=== PATIENT | female | born 1945 | race Caucasian/White ===

== ENCOUNTER → 2016-08-26 | Outpatient (CLI) | payer OTHER | LOC: MMPC 09:00 | PROVIDERS: ATTEND Family Medicine | DX: Z79.01 Long term (current) use of anticoagulants (principal); Z51.81 Encounter for therapeutic drug level monitoring; Z86.718 Personal history of other venous thrombosis and embolism | CPT/HCPCS: 85610 ==

== ENCOUNTER → 2016-10-07 | Outpatient (CLI) | payer OTHER | LOC: MMPC 09:00 | PROVIDERS: ATTEND Family Medicine | DX: Z79.01 Long term (current) use of anticoagulants (principal); Z51.81 Encounter for therapeutic drug level monitoring; Z86.718 Personal history of other venous thrombosis and embolism | CPT/HCPCS: 85610 ==

== ENCOUNTER → 2016-11-18 | Outpatient (CLI) | payer OTHER | LOC: MMPC 09:00 | PROVIDERS: ATTEND Family Medicine | DX: Z79.01 Long term (current) use of anticoagulants (principal); Z51.81 Encounter for therapeutic drug level monitoring; Z86.718 Personal history of other venous thrombosis and embolism | CPT/HCPCS: 85610 ==

== ENCOUNTER 2016-12-19 09:30 | Inpatient (IN) | payer OTHER ==
[2016-12-19] MEDS ORDERED: NORMAL SALINE 10 ML SYRINGE FLUSH IVP PRN ×2 (09:41→12:22)
[2016-12-19] MEDS ORDERED: KETOROLAC 15 MG/1 ML VIAL IVP ONE (09:41)
[2016-12-19] MEDS ORDERED: Sodium Chloride 0.9% 1,000 ML PRIMARY IV ONE ×2 (09:41→12:22)
[2016-12-19] MEDS ORDERED: ONDANSETRON 4 MG/2 ML VIAL IVP ONE (09:41)
--- NOTE | 2016-12-19 09:51 | PDOC ---
General Adult HPI - General Chief Complaint: General Medical Stated Complaint: flu symptoms, possible cellulitis Date Seen by Provider: 12/19/16 Time Seen by Provider: 09:35 Source: POSITIVE: Patient, EMS Exam Limitations: POSITIVE: No limitations Nurse's Notes Reviewed & Considered: Yes EMS Report Reviewed & Considered: Verbal - History of Present Illness Initial Comment: The patient is a 71-year-old female who presents to the emergency department by ambulance with flulike symptoms. She states that she has not felt well for the past 2 days. Her son was seen at the walk-in clinic last week and diagnosed with influenza B. The patient states that she has had onset of nausea and vomiting and is really been unable to keep anything down the last day or 2. She has some intermittent abdominal pain and currently has some pain in the epigastric region. She has had loose stools. She denies any blood in her stool or emesis. She states that she has been unable to take her medications for the last day or 2. She does have a history of diabetes as well as history of recurrent DVTs. She has some open wounds on her leg and thinks she is getting an infection on her left lower leg and the calf region. She reports subjective fevers and chills at home. She describes generalized muscle aches as well. She denies any chest pain or increased shortness of breath. She does have mild sore throat and cough as well. 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 She reports increased generalized weakness as well as some dizziness and lightheadedness at home. Have you received a tetanus shot in the past 10 years?: Yes - Patient Home Medications Home Medications: Home Medications Potassium Chloride [Klor-Con] 20 meq PO DAILY #30 tab 12/09/14 Pantoprazole Sodium 1 tab PO QD #30 tab 12/29/15 Tramadol HCl 1 tab PO TID PRN #90 tab 02/12/16 Furosemide 20 mg PO Q48H #30 tablet 03/30/16 Clindamycin HCl 1 cap PO TID #30 cap 04/02/16 Lisinopril 1 tab PO DAILY #30 tab 05/19/16 Metformin HCl 1,000 mg PO C BK DIN #180 tablet 05/26/16 Ascorbic Acid [Vitamin C] 1 tab PO QD #30 tab 10/07/16 Neomyc/Bacit/Polymy Oint [Neosporin Oint] 1 applic TOPICAL BID #1 tube 10/07/16 Zinc 1 tab PO QD #30 tab 10/07/16 Atenolol 25 mg PO BEDTIME #30 tablet 10/12/16 Bupropion HCl [Bupropion Hcl Sr] 150 mg PO BID #60 tablet.sa 10/12/16 Canagliflozin [Invokana] 1 tab PO QD #30 tab 10/12/16 Nitroglycerin [Nitroglycerin Patch] 0.2 patch TRANSDERM Q24H #30 patch.td24 Simvastatin 20 mg PO DAILY #30 tablet 10/12/16 Warfarin Sodium 4 tab PO DAILY #120 tab 10/14/16 - Patient Allergies Allergies/Adverse Reactions: Allergies Allergy/AdvReac Type Severity Reaction Status Date / Time morphine Allergy DYSPHORIA Verified 12/19/16 11:21 Past Medical History - heen HEENT History: Chipped or Loose Teeth 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 CHIPPED/BROKEN TEETH. STATES NOTHING CURRENTLY LOOSE Cardiovascular History: Hypertension, Angina, DVTs, Hyperlipidemia Respiratory History: Snoring Gastrointestinal History: Gallbladder Disease Additional Gastrointestinal History: LAP GALILEO Genitourinary History: Denies History Endocrine History: Type 2 Diabetes (oral) Additional Endocrine History: PLUS INVOKANA FRO DM Musculoskeletal History: Arthritis, Back Pain, Limited ROM, Joint Pain Prosthesis or Implant: No Additional Musculoskeletal History: PATIENT STATES SHE HAS ARTHRITIS HOWEVER NO PRIOR ACTUAL DIAGNOSIS Neurological History: TIA Additional Neurological History: POSSIBLE TIA IN 2013 Blood Disorders: Anemia, Clotting Disorders Additional Blood Disorders History: MULTIPLE PREVIOUS BLOOD CLOTS. Psychiatric History: Depression History of Sexually Transmitted Diseases: No Cancer History: Denies History History of MDRO: No History of Other Communicable Diseases: No Alcohol Use: None Substance Use Type: None Previous Surgical History: Yes Type / Date of Surgery: D&C, CHOLECYSTECTOMY Anesthesia Reactions: No Malignant Hyperthermia: No Significant Family History: Heart disease, COPD Additional Family History: Mother has heart disease and COPD Past Medical History Reviewed: Reviewed - No Changes ROS - Limitations ROS Limitations: No Limitations Constitution: REPORTS: Chills, Fever, Weakness (Generalized weakness, difficult for her to even get out of bed) Cardiovascular: REPORTS: Edema (Chronic edema in her legs). DENIES: Chest Pain , Heart Racing, Heart Palpitations Respiratory: REPORTS: Cough Non Productive (Mild). DENIES: Cough Productive, Hurts To Breathe, Shortness Of Breath Neurological: REPORTS: Dizziness. DENIES: Headache, Numbness, Weakness Gastrointestinal: REPORTS: Abdominal Pain (Some intermittent abdominal pain and cramping the last few days, some vague discomfort in the epigastric region currently), Nausea, Vomitting, Diarrhea (Primarily loose stools). DENIES: Black Stools, Bloody Stools, Constipation Endocrine: REPORTS: Fatigue Musculoskeletal: REPORTS: Muscle Aches (Generalized muscle aches) Genitourinary: DENIES: Dysuria, Hematuria, Difficulty Urinating Eyes: REPORTS: Denies Symptoms ENT: REPORTS: Congestion, Sore Throat Skin: DENIES: Rash General Adult Exam - General Appearance General Appearance: POSITIVE: Alert, Cooperative, No Acute Distress - HEENT HEENT: POSITIVE: Head Inspection Nml, Eyes Inspection Nml, Ears Inspection Nml, Dry Mucous Membranes - Neck Neck: POSITIVE: Normal Inspection. NEGATIVE: Lymphadenopathy - Respiratory Respiratory: POSITIVE: No Respiratory Distress, Breath Sounds Normal - Cardiovascular Cardiovascular: POSITIVE: Regular Rate & Rhythm, No Murmur, No Gallop Peripheral Pulses: Dorsalis-pedis (R): 2+, Dorsalis-pedis (L): 2+ - Abdomen Abdomen: Soft: (All Quadrants), Denies Tenderness: (All Quadrants), No Distention: (All Quadrants) - Skin Skin: POSITIVE: Normal Color - Extremities Additional Extremities Details: She does have edema in her legs bilaterally, she does have venous stasis changes noted bilaterally in her lower legs, she does have several open wounds to her shins, she also has an open wound to the left calf with some associated induration, warmth and swelling. 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 As Tested, Motor Normal, Sensation Normal, Other (No focal neurologic deficits) General Adult Progress - Results Reviewed by me Lab Results Reviewed: Yes Lab Results:: Laboratory Results 12/19/16 Range/Units 09:21 WBC 3.86 L (4.8-10.8) 10^3/uL RBC 5.43 H (4.20-5.40) 10^6/uL Hgb 14.7 (12.0-16.0) g/dL Hct 43.6 (37.0-47.0) % MCV 80.3 L (81-99) FL MCH 27.1 (27-31) PG MCHC 33.7 (33-37) g/dL RDW Std Deviation 44.1 (39-50) fL RDW Coeff of Patricia 15.3 H (11.5-14.5) % Plt Count 201 (140-350) 10*3/uL MPV 9.7 (7.4-12.2) FL Immature Gran % (Auto) 0.3 (0-5) % Neut % (Auto) 84.1 H (50-80) % Lymph % (Auto) 8.8 L (10-50) % [place] % (Auto) 5.2 (5-15) % Eos % (Auto) 1.3 (0-8) % Baso % (Auto) 0.3 (0-1) % Immature Gran # (Auto) 0.01 10*3/UL Neut # (Auto) 3.25 10*3/UL Lymph # (Auto) 0.34 10*3/uL [place] # (Auto) 0.20 L (0.3-0.8) 10*3/UL Eos # (Auto) 0.05 10*3/UL Baso # (Auto) 0.01 10*3/UL WBC Morphology Comment Normal morphology (NORM) Plt Morphology Comment Normal morphology (NORM) RBC Morph Comment Normal morphology (NORM) PT 11.4 (9.7-11.4) secs INR 1.10 (0.00-5.90) N/A Sodium 138 (135-145) meq/L Potassium 4.1 (3.8-5.2) meq/L Chloride 103 (98-112) meq/L Carbon Dioxide 25 (23-33) meq/L Anion Gap 10 (5-20) BUN 17 (7-22) mg/dL Creatinine 0.8 (0.50-1.20) mg/dL Estimated GFR > 60 (>60 ml/min/1.73m(2)) BUN/Creatinine Ratio 21.25 H (6-20) Glucose 216 H (78-110) mg/dL Calculated Osmolality 294.0 H (267-292) mOsm/kg Lactic Acid 1.1 (0.70-2.10) MMOL/L Calcium 9.9 (8.7-10.7) mg/dL Magnesium 1.6 (1.6-2.4) mg/dL Total Bilirubin 0.9 (0.3-1.2) mg/dL AST 21 (8-39) IU/L ALT 27 (9-52) IU/L Alkaline Phosphatase 81 (38-126) IU/L Total Creatine Kinase 54 (30-136) IU/L Troponin I < 0.012 (< 0.040) ng/mL C-Reactive Protein 1.0 H (0.0-0.9) mg/dL Total Protein 7.3 (6.1-8.0) g/dL Albumin 3.9 (3.5-4.8) g/dL Globulin 3.3 (2.50-4.10) g/dL Albumin/Globulin Ratio 1.10 L (1.3-2.0) mg/g EKG Interpreted/Reviewed By Me:: Yes EKG Interpretation:: POSITIVE: Normal Sinus Rhythm, Normal Rate, Normal Intervals, Normal QRS, Normal ST/T - Patient's Progress MDM / ED Course: An IV was established and the patient did receive a liter bolus of normal saline as well as Zofran 4 mg IV and Toradol 15 mg IV for muscle aches. After administration of fluids and medication the patient stated that she was not feeling any better. She states that she still feels miserable in general. Her blood work is all essentially unremarkable. Blood cultures and lactate were drawn shortly after initial evaluation. Her influenza screen is negative. At this time she appears to have a viral syndrome with associated gastroenteritis and dehydration. In addition she does have cellulitis in her left calf. These findings were discussed with the patient and her son. Her son does not think that he can take care of her given her degree of generalized weakness and malaise currently. I did discuss patient with Dr. Beckwith and he has agreed to admit the patient for further treatment. She was started on Ancef for treatment of cellulitis in her left calf. - Consult Counseled: POSITIVE: Patient, Family, RE: Lab Results, RE: DX, RE: Need for F/U Patient Care Time - Estimated PCT Patient Care Time (In Minutes): 35 Vital Signs - Recent Vital Signs Vital Signs: Vital Signs (Last 8 hours) Temp Pulse Resp Pulse Ox 12/19/16 09:42 98.8 F 81 16 97 - VS Reviewed Vital Signs Reviewed: Yes Discharge Clinical Impression: Viral infection, Gastroenteritis, Dehydration, Cellulitis of left leg Discharge Disposition: Admit to Inpatient Condition: Stable Date Decision to Admit to Inpatient: 12/19/16 Time Decision to Admit to Inpatient: 11:15
[2016-12-19 10:03] LABS: BASOPHILS # (AUTO) 0.01 10*3/UL; BASOPHILS % (AUTO) 0.3 % (0-1); EOSINOPHILS # (AUTO) 0.05 10*3/UL; EOSINOPHILS % (AUTO) 1.3 % (0-8); HEMATOCRIT 43.6 % (37.0-47.0); HEMOGLOBIN 14.7 g/dL (12.0-16.0); LYMPHOCYTES # (AUTO) 0.34 10*3/uL; MEAN CORPUSCULAR HEMOGLOBIN 27.1 PG (27-31); MEAN CORPUSCULAR HGB CONC 33.7 g/dL (33-37); MEAN CORPUSCULAR VOLUME 80.3 FL (81-99); MEAN PLATELET VOLUME 9.7 FL (7.4-12.2); MONOCYTES % (AUTO) 5.2 % (5-15); NEUTROPHILS # (AUTO) 3.25 10*3/UL; NEUTROPHILS % (AUTO) 84.1 % (50-80); RED BLOOD COUNT 5.43 10^6/uL (4.20-5.40)
[2016-12-19 10:13] LABS: BLOOD UREA NITROGEN 17 mg/dL (7-22); BUN/CREATININE RATIO 21.25 (6-20); CALCIUM 9.9 mg/dL (8.7-10.7); EST GLOMERULAR FILTRATION > 60 (>60 ml/min/1.73m(2)); MAGNESIUM 1.6 mg/dL (1.6-2.4); SERUM ALBUMIN 3.9 g/dL (3.5-4.8)
--- NOTE | 2016-12-19 10:13 | EKG ---
[address] [place] [address] Measurements Intervals [place] Rate: 71 P: 76 DE: 170 QRS: -39 QRSD: 94 T: 67 QT: 418 QTc: 441 Interpretive Statements SINUS RHYTHM LEFT AXIS DEVIATION Compared to ECG 11/25/2014 19:05:59 Left-axis deviation now present ST (T wave) deviation no longer present Electronically Signed On 12-21-16 16:19:56 MDT by Teddy Sampson [email or web address]
[2016-12-19 10:18] LABS: PLATELET MORPHOLOGY COMMENT NORMAL MORPHOLOGY (NORM); RBC MORPHOLOGY COMMENT NORMAL MORPHOLOGY (NORM); WBC MORPHOLOGY COMMENT NORMAL MORPHOLOGY (NORM)
[2016-12-19] MEDS ORDERED: ceFAZolin Inj 2gm (Premix) 2 GM in Dextrose 1 BAG IV ONE (11:11)
[2016-12-19 12:05] LABS: BILIRUBIN,URINE SMALL (NEG); COLOR,URINE YELLOW; GLUCOSE, URINE (UA) 100 mg/dL (NEG); NITRATE,URINE NEGATIVE (NEG); PROTEIN,URINE 100 mg/dl (NEG); UROBILINOGEN,URINE 0.2 EU/dL (0.2)
[2016-12-19 12:09] LABS: CLARITY,URINE CLEAR (CLEAR)
[2016-12-19 12:12] LABS: OCCULT BLOOD,URINE TRACE (NEG); URINE SAMPLE TYPE VOIDED SPECIMEN
[2016-12-19 12:13] LABS: BACTERIA,URINE MODERATE
[2016-12-19 12:14] LABS: SQUAMOUS EPITHELIAL CELL,UR MODERATE
[2016-12-19] MEDS ORDERED: ONDANSETRON 4 MG/2 ML VIAL IVP PRN (12:22)
[2016-12-19] MEDS ORDERED: LIDOCAINE W/ SODIUM BICARB 0.5 ML SYR SUBD PRN (12:22)
--- NOTE | 2016-12-19 12:43 | PDOC ---
History and Physical - History of Present Illness Date and Time of Service: 12/19/2016 12:43 PM Chief Complaint: Not feeling well, body aches, vomiting today History of Present Illness: This is a 71 years old female with medical history significant for history of diabetes, hypertension, history of previous DVTs on chronic anticoagulation, history of previous cellulitis who was brought to the hospital because of feeling of generalized body aches, not feeling well that started 2 days ago in addition she did report vomiting today she is not eating because of that she came into the hospital. In the ER they suspected maybe she had a viral symptoms as her son had a recent influenza B, they gave her some fluid, a test for influenza was negative there is question of maybe some cellulitis she was giving a dose of antibiotic and she was admitted. Currently she is a having some aching muscles otherwise denying other symptoms. Has no diarrhea. No abdominal pain, no chest pain or shortness of breath. Past Medical History Medical History: 1. 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 2. Hypertension. 3. depression. 4. High cholesterol. 5. diabetes on oral hypoglycemic agents. 6. History of previous cellulitis in 2014. 7. History of chronic ulceration left leg Surgical History: Open cholecystectomy. Family History: Reviewed an Not Pertinent (No history of diabetes or cancers) Past Social History: Lives at home with her son Tobacco Use: Former Smoker Substance Use Type: None Alcohol Use: None Medication / Allergies Home Medications: Home Medications Medication Instructions Recorded Confirmed Type Potassium Chloride [Klor-Con] 20 meq PO DAILY #30 tab 12/09/14 12/19/16 Rx Pantoprazole Sodium 1 tab PO QD #30 tab 12/29/15 12/19/16 Clinic Tramadol HCl 1 tab PO TID PRN #90 tab 02/12/16 12/19/16 Clinic Furosemide 20 mg PO Q48H #30 tablet 03/30/16 12/19/16 Clinic Clindamycin HCl 1 cap PO TID #30 cap 04/02/16 12/19/16 Clinic Lisinopril 1 tab PO DAILY #30 tab 05/19/16 12/19/16 Clinic Metformin HCl 1,000 mg PO C BK DIN #180 tablet 05/26/16 12/19/16 Clinic Ascorbic Acid [Vitamin C] 1 tab PO QD #30 tab 10/07/16 12/19/16 Clinic Neomyc/Bacit/Polymy Oint 1 applic TOPICAL BID #1 tube 10/07/16 12/19/16 [facility] [Neosporin Oint] Zinc 1 tab PO QD #30 tab 10/07/16 12/19/16 [facility] Atenolol 25 mg PO BEDTIME #30 tablet 10/12/16 12/19/16 [facility] Bupropion HCl [Bupropion Hcl Sr] 150 mg PO BID #60 tablet.sa 10/12/16 12/19/16 [facility] Canagliflozin [Invokana] 1 tab PO QD #30 tab 10/12/16 12/19/16 [facility] Nitroglycerin [Nitroglycerin Patch] 0.2 patch TRANSDERM Q24H #30 10/12/16 [facility] patch.td24 Simvastatin 20 mg PO DAILY #30 tablet 10/12/16 12/19/16 [facility] Warfarin Sodium 4 tab PO DAILY #120 tab 10/14/16 12/19/16 [facility] Allergies/Adverse Reactions: Allergies Allergy/AdvReac Type Severity Reaction Status Date / Time morphine Allergy DYSPHORIA Verified 12/19/16 11:21 Review of Systems - Review of Systems All Systems: Reviewed & No Additional Complaints Except as Stated Exam - Vitals Vital Signs: Vital Signs Height 5 ft 2 in Weight 214 lb - General General Appearance: POSITIVE: No Acute Distress, Cooperative, Obese - Head Head Exam: POSITIVE: Normal Inspection, Atraumatic - Eye Eye Exam: POSITIVE: Normal Appearance - ENT ENT Exam: POSITIVE: Normal Exam - Neck Neck Exam: POSITIVE: Normal Inspection - Respiratory Respiratory Exam: POSITIVE: Clear to Auscultation - Bilaterally - Cardiovascular Cardiovascular Exam: POSITIVE: RRR - GI/Abdominal GI/Abdominal Exam: POSITIVE: Normal Bowel Sounds, Non Tender, Non Distended, Soft - Rectal Rectal Exam: POSITIVE: Deferred - External Exam: POSITIVE: Deferred - Extremities Additional Extremities Exam Details: chronic dermatitic changes noted to the left lower leg with hyperpigmentation. There is a chronic ulceration on the left mid leg posteriorly seems to be chronic, minimal tenderness to say to say if there is erythema - Neurological Neurological Exam: POSITIVE: Alert, Oriented x 3, CN II-XII Intact, Speech Intact / Clear, Moves All Extremities Equally - Psychiatric Psychiatric Exam: POSITIVE: Normal Affect Results - Labs CBC and BMP: 12/19/16 09:21 12/19/16 09:21 Labs - Last 24 Hours: Laboratory Results 12/19/16 Range/Units 11:50 Ur Collection Type Voided specimen Urine Color Yellow Urine Clarity Clear (CLEAR) Urine pH 6.0 (5.0-8.5) Ur Specific [place] 1.025 (1.005-1.030) Urine Protein 100 (NEG) mg/dl Urine Glucose (UA) 100 (NEG) mg/dL Urine Ketones 40 (NEG) Urine Occult Blood Trace H (NEG) Urine Nitrate Negative (NEG) Urine Bilirubin Small (NEG) Urine Urobilinogen 0.2 (0.2) EU/dL Ur Leukocyte Esterase Negative (NEG) Urine RBC 4-6 (NONE) /hpf Urine WBC 4-6 (NONE) Ur Squamous Epith Cells Moderate (NONE) Ur Renal Epithelial Cell None (NONE) Urine Crystals None Urine Bacteria Moderate (NONE) Urine Casts None (NONE) Urine Mucus Moderate (NONE) Urine Trichomonas None (NONE) Urine Yeast None (NONE) Ur Culture Indicated? Culture not set - EKG Data -: EKG Interpreted by Me Rate: Normal EKG Shows Normal: Sinus Rhythm - EKG Data Additional EKG Details: No significant EKG changes noted Assessment and Plan - Patient Problems (1) Viral syndrome Current Visit: Yes Status: Acute Comment: Symptoms suggest a viral syndrome, because of her diabetes and family member who has influenza B I think will treat empirically for possible flu. (2) Cellulitis of left leg Current Visit: Yes Status: Acute Comment: Unclear if there is cellulitis of the leg as the skin is dark because of the pigmentation I think we'll wait for cultures and give her 1 dose of Invanz and will follow-up clinically. (3) Dehydration Current Visit: Yes Status: Acute Comment: We'll give her some fluid overnight (4) Diabetes mellitus type II, controlled Current Visit: No Status: Acute Comment: Same medications (5) Chronic anticoagulation Current Visit: No Status: Acute Comment: Her INR is a not therapeutic will put her back on her warfarin if not therapeutic by tomorrow we'll put her on Lovenox Photo / Body Diagrams - Uploaded Photos Uploaded Photos:
[2016-12-19] MEDS ORDERED: PANTOPRAZOLE 40 MG TABLET PO SCH (12:45)
[2016-12-19] MEDS: OSELTAMIVIR PHOSPHATE 75 MG CAPSULE PO SCH ×2 (13:12→20:19)
[2016-12-19] MEDS: Sodium Chloride 0.9% 1,000 ML PRIMARY IV SCH (14:25)
[2016-12-19] MEDS: metFORMIN 500 MG TABLET PO SCH (17:01)
[2016-12-19] MEDS: ACETAMINOPHEN 325 MG TABLET PO PRN (17:01)
[2016-12-19] MEDS: Ertapenem Inj 1 GM in Sodium Chloride 0.9% 100 ML IV SCH (17:02)
[2016-12-19] MEDS: Simvastatin Tab 20 MG TAB PO SCH (20:19)
[2016-12-19] MEDS: BuPROPion SR Tab 150 MG TAB PO SCH (20:19)
[2016-12-19] MEDS: ATENOLOL 25 MG TABLET PO SCH (20:19)
[2016-12-19] MEDS ORDERED: Warfarin 5 MG TAB PO SCH (21:00)
[2016-12-20 06:20] LABS: BASOPHILS # (AUTO) 0.02 10*3/UL; BASOPHILS % (AUTO) 0.6 % (0-1); EOSINOPHILS # (AUTO) 0.01 10*3/UL; EOSINOPHILS % (AUTO) 0.3 % (0-8); HEMATOCRIT 36.8 % (37.0-47.0); LYMPHOCYTES # (AUTO) 0.33 10*3/uL; MEAN CORPUSCULAR HGB CONC 32.6 g/dL (33-37); MEAN CORPUSCULAR VOLUME 82.7 FL (81-99); MEAN PLATELET VOLUME 9.6 FL (7.4-12.2); MONOCYTES # (AUTO) 0.18 10*3/UL (0.3-0.8); MONOCYTES % (AUTO) 5.2 % (5-15); RED BLOOD COUNT 4.45 10^6/uL (4.20-5.40)
[2016-12-20 06:46] LABS: PLATELET MORPHOLOGY COMMENT NORMAL MORPHOLOGY (NORM); RBC MORPHOLOGY COMMENT NORMAL MORPHOLOGY (NORM)
[2016-12-20 06:47] LABS: WBC MORPHOLOGY COMMENT SEE COMMENTS (NORM)
[2016-12-20] MEDS ORDERED: PANTOPRAZOLE 40 MG TABLET PO SCH (07:00)
[2016-12-20] MEDS: ACETAMINOPHEN 325 MG TABLET PO PRN ×2 (07:04→16:55)
[2016-12-20] MEDS: metFORMIN 500 MG TABLET PO SCH ×2 (07:04→16:55)
[2016-12-20] MEDS: Sodium Chloride 0.9% 1,000 ML PRIMARY IV SCH ×2 (07:04→22:34)
--- NOTE | 2016-12-20 07:21 | PDOC(PROG) ---
Date and Time of Service: 12/20/2016 7:18 AM Interval History: Subjective Patient still doesn't feel well, she said she vomited last night twice. Having some stomach upset, did have a loose stool. No pain in her legs. Still have the generalized aches. Some cough. Objective : Data - Labs CBC and BMP: 12/20/16 05:40 12/19/16 09:21 Labs - Last 24 Hours: Laboratory Results 12/19/16 12/20/16 Range/Units 11:50 05:40 WBC 3.45 L (4.8-10.8) 10^3/uL RBC 4.45 (4.20-5.40) 10^6/uL Hgb 12.0 (12.0-16.0) g/dL Hct 36.8 L (37.0-47.0) % MCV 82.7 (81-99) FL MCH 27.0 (27-31) PG MCHC 32.6 L (33-37) g/dL RDW Std Deviation 46.8 (39-50) fL RDW Coeff of Patricia 15.6 H (11.5-14.5) % Plt Count 153 (140-350) 10*3/uL MPV 9.6 (7.4-12.2) FL Immature Gran % (Auto) 0.3 (0-5) % Neut % (Auto) 84.0 H (50-80) % Lymph % (Auto) 9.6 L (10-50) % Day % (Auto) 5.2 (5-15) % Eos % (Auto) 0.3 (0-8) % Baso % (Auto) 0.6 (0-1) % Immature Gran # (Auto) 0.01 10*3/UL Neut # (Auto) 2.90 10*3/UL Lymph # (Auto) 0.33 10*3/uL Day # (Auto) 0.18 L (0.3-0.8) 10*3/UL Eos # (Auto) 0.01 10*3/UL Baso # (Auto) 0.02 10*3/UL WBC Morphology Comment See comments (NORM) Plt Morphology Comment Normal morphology (NORM) RBC Morph Comment Normal morphology (NORM) PT 11.4 (9.7-11.4) secs INR 1.10 (0.00-5.90) N/A C-Reactive Protein 0.9 (0.0-0.9) mg/dL Ur Collection Type Voided specimen Urine Color Yellow Urine Clarity Clear (CLEAR) Urine pH 6.0 (5.0-8.5) Ur Specific [place] 1.025 (1.005-1.030) Urine Protein 100 (NEG) mg/dl Urine Glucose (UA) 100 (NEG) mg/dL Urine Ketones 40 (NEG) Urine Occult Blood Trace H (NEG) Urine Nitrate Negative (NEG) Urine Bilirubin Small (NEG) Urine Urobilinogen 0.2 (0.2) EU/dL Ur Leukocyte Esterase Negative (NEG) Urine RBC 4-6 (NONE) /hpf Urine WBC 4-6 (NONE) Ur Squamous Epith Cells Moderate (NONE) Ur Renal Epithelial Cell None (NONE) Urine Crystals None Urine Bacteria Moderate (NONE) Urine Casts None (NONE) Urine Mucus Moderate (NONE) Urine Trichomonas None (NONE) Urine Yeast None (NONE) Ur Culture Indicated? Culture not set Objective : Exam - General General Appearance: Cooperative, Obese Additional General Exam Details: Looks tired - Head Head Exam: Normal Inspection - Eye Eye Exam: Normal Appearance - ENT ENT Exam: Normal Exam - Neck Neck Exam: Normal Inspection - Respiratory Respiratory Exam: Clear to Auscultation - Bilaterally - Cardiovascular Cardiovascular Exam: RRR - GI/Abdominal GI/Abdominal Exam: Normal Bowel Sounds, Non Tender, Non Distended, Soft, No Organomegaly - Rectal Rectal Exam: Deferred - External Exam: Deferred - Extremities Additional Extremities Exam Details: Chronic dermatitic changes noted more on the left leg. I don't see erythema. Old scabs noted on the left lower extremity - Back Back Exam: Normal Inspection - Neurological Neurological Exam: Alert, Oriented x 3, CN II-XII Intact, Moves All Extremities Equally - Psychiatric Psychiatric Exam: Normal Affect Assessment and Plan - Patient Problems (1) Viral syndrome Current Visit: Yes Status: Acute Comment: Continue Tamiflu. Continue supportive care. (2) Cellulitis of left leg Current Visit: Yes Status: Acute Comment: in the afternoon she started to have fever so we started her empirically on antibiotics, it does not look clear-cut cellulitis though. I think we'll wait for cultures if negative we'll stop the antibiotics (3) Dehydration Current Visit: Yes Status: Acute Comment: Continue fluid (4) Diabetes mellitus type II, controlled Current Visit: No Status: Acute Comment: Same medications (5) Chronic anticoagulation Current Visit: No Status: Acute Comment: Her INR is still not therapeutic will increase the dosage of the warfarin and put her on Lovenox for bridging. Photo / Body Diagrams - Uploaded Photos Uploaded Photos:
[2016-12-20] MEDS: ENOXAPARIN SODIUM 40 MG/0.4 ML SYRINGE SUBCUT SCH (08:46)
[2016-12-20] MEDS: OSELTAMIVIR PHOSPHATE 75 MG CAPSULE PO SCH ×2 (08:46→20:47)
[2016-12-20] MEDS: BuPROPion SR Tab 150 MG TAB PO SCH ×2 (08:46→20:46)
[2016-12-20] MEDS ORDERED: LISINOPRIL 20 MG TABLET PO SCH (09:00)
[2016-12-20] MEDS ORDERED: CANAGLIFLOZIN PO SCH (09:00)
[2016-12-20] MEDS ORDERED: LISINOPRIL PO SCH (09:00)
[2016-12-20] MEDS ORDERED: CANAGLIFLOZIN 100 MG PO SCH (09:00)
[2016-12-20] MEDS: CANAGLIFLOZIN 100 MG PO SCH (09:29)
[2016-12-20] MEDS ORDERED: CALCIUM CARBONATE 500 MG (TUMS) CHEWABLE TABLET PO PRN (10:57)
[2016-12-20] MEDS: NITROGLYCERIN PATCH 0.2 MG/HR TRANSDERM SCH (11:51)
--- NOTE | 2016-12-20 13:02 | DI ---
XR CXR 1VW,12/20/2016 7:16 AM: Clinical History: Cough and fever Previous Exam: June 05, 2015 Findings: A single frontal radiograph of the chest is obtained, and demonstrate stable cardiomegaly. There is n o infiltrate nor effusion. Skeletal structures are unremarkable. Impression: No acute disease.
[2016-12-20] MEDS: Ertapenem Inj 1 GM in Sodium Chloride 0.9% 100 ML IV SCH (16:55)
[2016-12-20] MEDS: Simvastatin Tab 20 MG TAB PO SCH (20:47)
[2016-12-20] MEDS: ATENOLOL 25 MG TABLET PO SCH (20:47)
[2016-12-20] MEDS ORDERED: Warfarin 5 MG TAB PO SCH ×2 (21:00)
[2016-12-21 04:45] LABS: BASOPHILS # (AUTO) 0.01 10*3/UL; BASOPHILS % (AUTO) 0.4 % (0-1); EOSINOPHILS # (AUTO) 0.07 10*3/UL; EOSINOPHILS % (AUTO) 3.1 % (0-8); HEMATOCRIT 35.4 % (37.0-47.0); HEMOGLOBIN 11.3 g/dL (12.0-16.0); LYMPHOCYTES # (AUTO) 0.68 10*3/uL; MEAN CORPUSCULAR HEMOGLOBIN 26.7 PG (27-31); MEAN CORPUSCULAR HGB CONC 31.9 g/dL (33-37); MEAN CORPUSCULAR VOLUME 83.7 FL (81-99); MEAN PLATELET VOLUME 9.7 FL (7.4-12.2); MONOCYTES # (AUTO) 0.22 10*3/UL (0.3-0.8); MONOCYTES % (AUTO) 9.9 % (5-15); NEUTROPHILS # (AUTO) 1.24 10*3/UL; NEUTROPHILS % (AUTO) 55.7 % (50-80); RED BLOOD COUNT 4.23 10^6/uL (4.20-5.40)
[2016-12-21 04:49] LABS: PLATELET MORPHOLOGY COMMENT NORMAL MORPHOLOGY (NORM); RBC MORPHOLOGY COMMENT NORMAL MORPHOLOGY (NORM); WBC MORPHOLOGY COMMENT NORMAL MORPHOLOGY (NORM)
[2016-12-21 06:05] LABS: BLOOD UREA NITROGEN 18 mg/dL (7-22); EST GLOMERULAR FILTRATION > 60 (>60 ml/min/1.73m(2)); SERUM ALBUMIN 2.6 g/dL (3.5-4.8)
[2016-12-21] MEDS: PANTOPRAZOLE 40 MG TABLET PO SCH (07:07)
[2016-12-21] MEDS: metFORMIN 500 MG TABLET PO SCH ×2 (07:07→16:54)
--- NOTE | 2016-12-21 07:49 | PDOC(PROG) ---
Date and Time of Service: 12/21/2016 7:44 AM Interval History: Subjective Patient is still not feeling well, she had 2 loose bowel movements, no more vomiting though. Some vague abdominal discomfort. More like cramps. Still feeling weak. Objective : Data - Labs CBC and BMP: 12/21/16 04:17 12/21/16 04:17 Labs - Last 24 Hours: Laboratory Results 12/21/16 Range/Units 04:17 WBC 2.23 L (4.8-10.8) 10^3/uL RBC 4.23 (4.20-5.40) 10^6/uL Hgb 11.3 L (12.0-16.0) g/dL Hct 35.4 L (37.0-47.0) % MCV 83.7 (81-99) FL MCH 26.7 L (27-31) PG MCHC 31.9 L (33-37) g/dL RDW Std Deviation 48.0 (39-50) fL RDW Coeff of Patricia 15.9 H (11.5-14.5) % Plt Count 137 L (140-350) 10*3/uL MPV 9.7 (7.4-12.2) FL Immature Gran % (Auto) 0.4 (0-5) % Neut % (Auto) 55.7 (50-80) % Lymph % (Auto) 30.5 (10-50) % [place] % (Auto) 9.9 (5-15) % Eos % (Auto) 3.1 (0-8) % Baso % (Auto) 0.4 (0-1) % Immature Gran # (Auto) 0.01 10*3/UL Neut # (Auto) 1.24 10*3/UL Lymph # (Auto) 0.68 10*3/uL [place] # (Auto) 0.22 L (0.3-0.8) 10*3/UL Eos # (Auto) 0.07 10*3/UL Baso # (Auto) 0.01 10*3/UL WBC Morphology Comment Normal morphology (NORM) Plt Morphology Comment Normal morphology (NORM) RBC Morph Comment Normal morphology (NORM) PT 10.7 (9.7-11.4) secs INR 1.04 (0.00-5.90) N/A Sodium 138 (135-145) meq/L Potassium 3.7 L (3.8-5.2) meq/L Chloride 109 (98-112) meq/L Carbon Dioxide 23 (23-33) meq/L Anion Gap 6 (5-20) BUN 18 (7-22) mg/dL Creatinine 0.9 (0.50-1.20) mg/dL Estimated GFR > 60 (>60 ml/min/1.73m(2)) BUN/Creatinine Ratio 20.00 (6-20) Glucose 100 (78-110) mg/dL Calculated Osmolality 287.0 (267-292) mOsm/kg Calcium 9.0 (8.7-10.7) mg/dL Total Bilirubin 0.4 D (0.3-1.2) mg/dL AST 19 (8-39) IU/L ALT 27 (9-52) IU/L Alkaline Phosphatase 49 (38-126) IU/L Total Protein 5.2 L (6.1-8.0) g/dL Albumin 2.6 L (3.5-4.8) g/dL Globulin 2.6 (2.50-4.10) g/dL Albumin/Globulin Ratio 1.00 L (1.3-2.0) mg/g Objective : Exam - General General Appearance: Cooperative, Obese Additional General Exam Details: Looks tired - Head Head Exam: Normal Inspection - Eye Eye Exam: Normal Appearance - ENT ENT Exam: Normal Exam - Neck Neck Exam: Normal Inspection - Respiratory Respiratory Exam: Clear to Auscultation - Bilaterally - Cardiovascular Cardiovascular Exam: RRR - GI/Abdominal GI/Abdominal Exam: Normal Bowel Sounds, Non Tender, Non Distended, Soft - Rectal Rectal Exam: Deferred - External Exam: Deferred - Extremities Additional Extremities Exam Details: Chronic dermatitic changes noted worse on the left - Back Back Exam: Normal Inspection - Neurological Neurological Exam: Alert, Oriented x 3, CN II-XII Intact, Moves All Extremities Equally Assessment and Plan - Patient Problems (1) Viral syndrome Current Visit: Yes Status: Acute Comment: Continue Tamiflu. Continue supportive care. There was a question of cellulitis when she came in but I think probably she doesn't have it blood culture remain negative so we'll DC the antibiotics (2) Dehydration Current Visit: Yes Status: Acute Comment: Continue IV fluid but at a lower rate (3) Diabetes mellitus type II, controlled Current Visit: No Status: Acute Comment: Same medications (4) Chronic anticoagulation Current Visit: No Status: Acute Comment: INR is still not therapeutic will increase the dosage of warfarin. Continue Lovenox as a bridging treatment (5) Leukopenia Current Visit: Yes Status: Acute Comment: Her white count is low probably secondary to viral disease. We'll keep an eye on it Photo / Body Diagrams - Uploaded Photos Uploaded Photos:
[2016-12-21] MEDS: OSELTAMIVIR PHOSPHATE 75 MG CAPSULE PO SCH ×2 (08:20→20:42)
[2016-12-21] MEDS: BuPROPion SR Tab 150 MG TAB PO SCH ×2 (08:21→20:42)
[2016-12-21] MEDS: Potassium Chloride Tab 10 MEQ TAB PO SCH (08:22)
[2016-12-21] MEDS: CANAGLIFLOZIN 100 MG PO SCH (08:22)
[2016-12-21] MEDS: NITROGLYCERIN PATCH 0.2 MG/HR TRANSDERM SCH (08:23)
[2016-12-21] MEDS: ENOXAPARIN SODIUM 40 MG/0.4 ML SYRINGE SUBCUT SCH (08:27)
[2016-12-21] MEDS: Sodium Chloride 0.9% 1,000 ML PRIMARY IV SCH ×2 (08:50→12:45)
[2016-12-21] MEDS ORDERED: Patch Removal PATCH TRANSDERM SCH (09:00)
[2016-12-21] MEDS ORDERED: GUAIFENESIN/DM 5 ML UD CUP PO PRN (13:51)
[2016-12-21] MEDS: ATENOLOL 25 MG TABLET PO SCH (20:43)
[2016-12-21] MEDS: Warfarin 5 MG TAB PO SCH (20:43)
[2016-12-21] MEDS: Patch Removal PATCH TRANSDERM SCH (20:43)
[2016-12-21] MEDS: Simvastatin Tab 20 MG TAB PO SCH (20:43)
[2016-12-21] MEDS ORDERED: Zolpidem Tab 5 MG TAB PO PRN (21:42)
[2016-12-22 06:57] LABS: BASOPHILS # (AUTO) 0.01 10*3/UL; BASOPHILS % (AUTO) 0.4 % (0-1); EOSINOPHILS # (AUTO) 0.11 10*3/UL; EOSINOPHILS % (AUTO) 4.8 % (0-8); HEMATOCRIT 36.3 % (37.0-47.0); LYMPHOCYTES # (AUTO) 0.78 10*3/uL; MEAN CORPUSCULAR HEMOGLOBIN 27.1 PG (27-31); MEAN CORPUSCULAR HGB CONC 33.1 g/dL (33-37); MEAN CORPUSCULAR VOLUME 82.1 FL (81-99); MEAN PLATELET VOLUME 9.5 FL (7.4-12.2); MONOCYTES # (AUTO) 0.16 10*3/UL (0.3-0.8); NEUTROPHILS # (AUTO) 1.22 10*3/UL; NEUTROPHILS % (AUTO) 53.6 % (50-80); RED BLOOD COUNT 4.42 10^6/uL (4.20-5.40)
[2016-12-22 06:58] LABS: PLATELET MORPHOLOGY COMMENT NORMAL MORPHOLOGY (NORM); RBC MORPHOLOGY COMMENT NORMAL MORPHOLOGY (NORM); WBC MORPHOLOGY COMMENT NORMAL MORPHOLOGY (NORM)
[2016-12-22] MEDS: metFORMIN 500 MG TABLET PO SCH ×2 (07:32→16:59)
[2016-12-22] MEDS: PANTOPRAZOLE 40 MG TABLET PO SCH (07:33)
--- NOTE | 2016-12-22 07:42 | PDOC(PROG) ---
Objective : Data - Labs CBC and BMP: 12/22/16 06:14 12/21/16 04:17 Labs - Last 24 Hours: Laboratory Results 12/22/16 Range/Units 06:14 WBC 2.28 L (4.8-10.8) 10^3/uL RBC 4.42 (4.20-5.40) 10^6/uL Hgb 12.0 (12.0-16.0) g/dL Hct 36.3 L (37.0-47.0) % MCV 82.1 (81-99) FL MCH 27.1 (27-31) PG MCHC 33.1 (33-37) g/dL RDW Std Deviation 46.9 (39-50) fL RDW Coeff of [place] 15.9 H (11.5-14.5) % Plt Count 144 (140-350) 10*3/uL MPV 9.5 (7.4-12.2) FL Immature Gran % (Auto) 0 (0-5) % Neut % (Auto) 53.6 (50-80) % Lymph % (Auto) 34.2 (10-50) % [place] % (Auto) 7.0 (5-15) % Eos % (Auto) 4.8 (0-8) % Baso % (Auto) 0.4 (0-1) % Immature Gran # (Auto) 0 10*3/UL Neut # (Auto) 1.22 10*3/UL Lymph # (Auto) 0.78 10*3/uL [place] # (Auto) 0.16 L (0.3-0.8) 10*3/UL Eos # (Auto) 0.11 10*3/UL Baso # (Auto) 0.01 10*3/UL WBC Morphology Comment Normal morphology (NORM) Plt Morphology Comment Normal morphology (NORM) RBC Morph Comment Normal morphology (NORM) PT 13.2 H (9.7-11.4) secs INR 1.28 (0.00-5.90) N/A Assessment and Plan - Patient Problems (1) Viral syndrome Current Visit: Yes Status: Acute (2) Dehydration Current Visit: Yes Status: Acute (3) Diabetes mellitus type II, controlled Current Visit: No Status: Acute (4) Chronic anticoagulation Current Visit: No Status: Acute (5) Leukopenia Current Visit: Yes Status: Acute Photo / Body Diagrams - Uploaded Photos Uploaded Photos:
--- NOTE | 2016-12-22 07:47 | PDOC(PROG) ---
Date and Time of Service: 12/22/2016 7:44 AM Interval History: Subjective Maybe a little bit better today than yesterday, yesterday she said that she had multiple diarrhea stool last time she had a loose stool was this morning at 4: 30 AM. No abdominal pain. Still having the cough. No vomiting. Objective : Data - Labs CBC and BMP: 12/22/16 06:14 12/21/16 04:17 Labs - Last 24 Hours: Laboratory Results 12/22/16 Range/Units 06:14 WBC 2.28 L (4.8-10.8) 10^3/uL RBC 4.42 (4.20-5.40) 10^6/uL Hgb 12.0 (12.0-16.0) g/dL Hct 36.3 L (37.0-47.0) % MCV 82.1 (81-99) FL MCH 27.1 (27-31) PG MCHC 33.1 (33-37) g/dL RDW Std Deviation 46.9 (39-50) fL RDW Coeff of Patricia 15.9 H (11.5-14.5) % Plt Count 144 (140-350) 10*3/uL MPV 9.5 (7.4-12.2) FL Immature Gran % (Auto) 0 (0-5) % Neut % (Auto) 53.6 (50-80) % Lymph % (Auto) 34.2 (10-50) % [place] % (Auto) 7.0 (5-15) % Eos % (Auto) 4.8 (0-8) % Baso % (Auto) 0.4 (0-1) % Immature Gran # (Auto) 0 10*3/UL Neut # (Auto) 1.22 10*3/UL Lymph # (Auto) 0.78 10*3/uL [place] # (Auto) 0.16 L (0.3-0.8) 10*3/UL Eos # (Auto) 0.11 10*3/UL Baso # (Auto) 0.01 10*3/UL WBC Morphology Comment Normal morphology (NORM) Plt Morphology Comment Normal morphology (NORM) RBC Morph Comment Normal morphology (NORM) PT 13.2 H (9.7-11.4) secs INR 1.28 (0.00-5.90) N/A Objective : Exam - General General Appearance: No Acute Distress - Head Head Exam: Normal Inspection - Eye Eye Exam: Normal Appearance - ENT ENT Exam: Normal Exam - Neck Neck Exam: Normal Inspection - Respiratory Additional Respiratory Exam Details: Decreased air entry few wheezes. - Cardiovascular Cardiovascular Exam: RRR - GI/Abdominal GI/Abdominal Exam: Normal Bowel Sounds, Non Tender, Non Distended, Soft - Rectal Rectal Exam: Deferred - External Exam: Deferred - Extremities Extremities Exam: Normal Inspection - Back Back Exam: Normal Inspection - Neurological Neurological Exam: Alert, Oriented x 3, CN II-XII Intact, Moves All Extremities Equally - Psychiatric Psychiatric Exam: Normal Affect - Integumentary Integumentary Exam: Normal Color Assessment and Plan - Patient Problems (1) Viral syndrome Current Visit: Yes Status: Acute Comment: We treated this as possible flu because her son had the influenza will give the full course of Tamiflu. Patient making improvement. But he still too weak to go home. There is some wheezing will put her on bronchodilator (2) Dehydration Current Visit: Yes Status: Acute Comment: This is a improving. We'll see her intake during the day and have output of okay may be able to stop the fluid today. (3) Diabetes mellitus type II, controlled Current Visit: No Status: Acute Comment: Same meds (4) Chronic anticoagulation Current Visit: No Status: Acute Comment: INR is better continue Coumadin (5) Leukopenia Current Visit: Yes Status: Acute Comment: Secondary to viral infection. Seems to be stable Photo / Body Diagrams - Uploaded Photos Uploaded Photos:
[2016-12-22] MEDS ORDERED: LEVALBUTEROL HCL 1.25 MG/3 ML NEB ONE (08:01)
[2016-12-22] MEDS: CANAGLIFLOZIN 100 MG PO SCH (08:29)
[2016-12-22] MEDS: NITROGLYCERIN PATCH 0.2 MG/HR TRANSDERM SCH (08:29)
[2016-12-22] MEDS: ENOXAPARIN SODIUM 40 MG/0.4 ML SYRINGE SUBCUT SCH (08:29)
[2016-12-22] MEDS: BuPROPion SR Tab 150 MG TAB PO SCH ×2 (08:30→20:43)
[2016-12-22] MEDS: LISINOPRIL 20 MG TABLET PO SCH (08:30)
[2016-12-22] MEDS: Potassium Chloride Tab 10 MEQ TAB PO SCH (08:30)
[2016-12-22] MEDS: OSELTAMIVIR PHOSPHATE 75 MG CAPSULE PO SCH ×2 (08:30→20:43)
[2016-12-22] MEDS: LEVALBUTEROL HCL 0.63 MG/3 ML NEB SCH ×3 (08:34→19:37)
[2016-12-22] MEDS: Sodium Chloride 0.9% 1,000 ML PRIMARY IV SCH (13:39)
[2016-12-22] MEDS: Warfarin 5 MG TAB PO SCH (20:43)
[2016-12-22] MEDS: Simvastatin Tab 20 MG TAB PO SCH (20:43)
[2016-12-22] MEDS: ATENOLOL 25 MG TABLET PO SCH (20:43)
[2016-12-22] MEDS: Patch Removal PATCH TRANSDERM SCH (20:44)
[2016-12-23] MEDS: LEVALBUTEROL HCL 0.63 MG/3 ML NEB SCH ×2 (01:16→06:55)
[2016-12-23] MEDS: PANTOPRAZOLE 40 MG TABLET PO SCH (07:03)
[2016-12-23] MEDS: metFORMIN 500 MG TABLET PO SCH (07:03)
--- NOTE | 2016-12-23 07:56 | DCSUMMARY ---
Hospitalization Summary Admit Date: 12/19/16 Discharge Date: 12/23/16 Hospital Course: Discharge diagnoses 1. Viral syndrome 2. 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 Hypertension 4. Diabetes 5. Hypercholesterolemia 6. History of cellulitis 7. 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 Exam when I saw her she looked to tired she had the scabs of the left lower leg and chronic dermatitic changes, it was hard to tell whether there was a superimposed cellulitis, We did empirically start her on Tamiflu because of her recent exposure to influenza B, we gave some fluids and initially on Invanz. we did cover with antibiotics until we had the culture result and that remain negative so this was discontinued. She started to have diarrhea we checked for C. difficile and that was negative. Gradually there was improvement in her symptoms. On the day of discharge she was feeling better there was no more vomiting, diarrhea improved and no pain so we thought that she could be discharged home and follow up with her primary as an outpatient. We did discharge her on albuterol inhaler to help with the coughing symptoms that she was having. She did have some leukopenia when she came in we thought probably that is due to the viral infection but this need to be followed up later on as an outpatient. Laboratory Results 12/19/16 12/19/16 12/20/16 Range/Units 09:21 11:50 05:40 WBC 3.86 L 3.45 L (4.8-10.8) 10^3/uL RBC 5.43 H 4.45 (4.20-5.40) 10^6/uL Hgb 14.7 12.0 (12.0-16.0) g/dL Hct 43.6 36.8 L (37.0-47.0) % MCV 80.3 L 82.7 (81-99) FL MCH 27.1 27.0 (27-31) PG MCHC 33.7 32.6 L (33-37) g/dL RDW Std Deviation 44.1 46.8 (39-50) fL RDW Coeff of Patricia 15.3 H 15.6 H (11.5-14.5) % Plt Count 201 153 (140-350) 10*3/uL MPV 9.7 9.6 (7.4-12.2) FL Immature Gran % (Auto) 0.3 0.3 (0-5) % Neut % (Auto) 84.1 H 84.0 H (50-80) % Lymph % (Auto) 8.8 L 9.6 L (10-50) % [place] % (Auto) 5.2 5.2 (5-15) % Eos % (Auto) 1.3 0.3 (0-8) % Baso % (Auto) 0.3 0.6 (0-1) % Immature Gran # (Auto) 0.01 0.01 10*3/UL Neut # (Auto) 3.25 2.90 10*3/UL Lymph # (Auto) 0.34 0.33 10*3/uL [place] # (Auto) 0.20 L 0.18 L (0.3-0.8) 10*3/UL Eos # (Auto) 0.05 0.01 10*3/UL Baso # (Auto) 0.01 0.02 10*3/UL WBC Morphology Comment Normal morphology See comments (NORM) Plt Morphology Comment Normal morphology Normal morphology (NORM) RBC Morph Comment Normal morphology Normal morphology (NORM) PT 11.4 11.4 (9.7-11.4) secs INR 1.10 1.10 (0.00-5.90) N/A Sodium 138 (135-145) meq/L Potassium 4.1 (3.8-5.2) meq/L Chloride 103 (98-112) meq/L Carbon Dioxide 25 (23-33) meq/L Anion Gap 10 (5-20) BUN 17 (7-22) mg/dL Creatinine 0.8 (0.50-1.20) mg/dL Estimated GFR > 60 (>60 ml/min/1.73m(2)) BUN/Creatinine Ratio 21.25 H (6-20) Glucose 216 H (78-110) mg/dL Calculated Osmolality 294.0 H (267-292) mOsm/kg Lactic Acid 1.1 (0.70-2.10) MMOL/L Calcium 9.9 (8.7-10.7) mg/dL Magnesium 1.6 (1.6-2.4) mg/dL Total Bilirubin 0.9 (0.3-1.2) mg/dL AST 21 (8-39) IU/L ALT 27 (9-52) IU/L Alkaline Phosphatase 81 (38-126) IU/L Total Creatine Kinase 54 (30-136) IU/L Troponin I < 0.012 (< 0.040) ng/mL C-Reactive Protein 1.0 H 0.9 (0.0-0.9) mg/dL Total Protein 7.3 (6.1-8.0) g/dL Albumin 3.9 (3.5-4.8) g/dL Globulin 3.3 (2.50-4.10) g/dL Albumin/Globulin Ratio 1.10 L (1.3-2.0) mg/g Ur Collection Type Voided specimen Urine Color Yellow Urine Clarity Clear (CLEAR) Urine pH 6.0 (5.0-8.5) Ur Specific [place] 1.025 (1.005-1.030) Urine Protein 100 (NEG) mg/dl Urine Glucose (UA) 100 (NEG) mg/dL Urine Ketones 40 (NEG) Urine Occult Blood Trace H (NEG) Urine Nitrate Negative (NEG) Urine Bilirubin Small (NEG) Urine Urobilinogen 0.2 (0.2) EU/dL Ur Leukocyte Esterase Negative (NEG) Urine RBC 4-6 (NONE) /hpf Urine WBC 4-6 (NONE) Ur Squamous Epith Cells Moderate (NONE) Ur Renal Epithelial Cell None (NONE) Urine Crystals None Urine Bacteria Moderate (NONE) Urine Casts None (NONE) Urine Mucus Moderate (NONE) Urine Trichomonas None (NONE) Urine Yeast None (NONE) Ur Culture Indicated? Culture not set 12/21/16 12/22/16 12/23/16 Range/Units 04:17 06:14 04:19 WBC 2.23 L 2.28 L (4.8-10.8) 10^3/uL RBC 4.23 4.42 (4.20-5.40) 10^6/uL Hgb 11.3 L 12.0 (12.0-16.0) g/dL Hct 35.4 L 36.3 L (37.0-47.0) % MCV 83.7 82.1 (81-99) FL MCH 26.7 L 27.1 (27-31) PG MCHC 31.9 L 33.1 (33-37) g/dL RDW Std Deviation 48.0 46.9 (39-50) fL RDW Coeff of [place] 15.9 H 15.9 H (11.5-14.5) % Plt Count 137 L 144 (140-350) 10*3/uL MPV 9.7 9.5 (7.4-12.2) FL Immature Gran % (Auto) 0.4 0 (0-5) % Neut % (Auto) 55.7 53.6 (50-80) % Lymph % (Auto) 30.5 34.2 (10-50) % [place] % (Auto) 9.9 7.0 (5-15) % Eos % (Auto) 3.1 4.8 (0-8) % Baso % (Auto) 0.4 0.4 (0-1) % Immature Gran # (Auto) 0.01 0 10*3/UL Neut # (Auto) 1.24 1.22 10*3/UL Lymph # (Auto) 0.68 0.78 10*3/uL [place] # (Auto) 0.22 L 0.16 L (0.3-0.8) 10*3/UL Eos # (Auto) 0.07 0.11 10*3/UL Baso # (Auto) 0.01 0.01 10*3/UL WBC Morphology Comment Normal morphology Normal morphology (NORM) Plt Morphology Comment Normal morphology Normal morphology (NORM) RBC Morph Comment Normal morphology Normal morphology (NORM) PT 10.7 13.2 H 18.0 H (9.7-11.4) secs INR 1.04 1.28 1.73 (0.00-5.90) N/A Sodium 138 (135-145) meq/L Potassium 3.7 L (3.8-5.2) meq/L Chloride 109 (98-112) meq/L Carbon Dioxide 23 (23-33) meq/L Anion Gap 6 (5-20) BUN 18 (7-22) mg/dL Creatinine 0.9 (0.50-1.20) mg/dL Estimated GFR > 60 (>60 ml/min/1.73m(2)) BUN/Creatinine Ratio 20.00 (6-20) Glucose 100 (78-110) mg/dL Calculated Osmolality 287.0 (267-292) mOsm/kg Lactic Acid (0.70-2.10) MMOL/L Calcium 9.0 (8.7-10.7) mg/dL Magnesium (1.6-2.4) mg/dL Total Bilirubin 0.4 D (0.3-1.2) mg/dL AST 19 (8-39) IU/L ALT 27 (9-52) IU/L Alkaline Phosphatase 49 (38-126) IU/L Total Creatine Kinase (30-136) IU/L Troponin I (< 0.040) ng/mL C-Reactive Protein (0.0-0.9) mg/dL Total Protein 5.2 L (6.1-8.0) g/dL Albumin 2.6 L (3.5-4.8) g/dL Globulin 2.6 (2.50-4.10) g/dL Albumin/Globulin Ratio 1.00 L (1.3-2.0) mg/g Ur Collection Type Urine Color Urine Clarity (CLEAR) Urine pH (5.0-8.5) Ur Specific [place] (1.005-1.030) Urine Protein (NEG) mg/dl Urine Glucose (UA) (NEG) mg/dL Urine Ketones (NEG) Urine Occult Blood (NEG) Urine Nitrate (NEG) Urine Bilirubin (NEG) Urine Urobilinogen (0.2) EU/dL Ur Leukocyte Esterase (NEG) Urine RBC (NONE) /hpf Urine WBC (NONE) Ur Squamous Epith Cells (NONE) Ur Renal Epithelial Cell (NONE) Urine Crystals Urine Bacteria (NONE) Urine Casts (NONE) Urine Mucus (NONE) Urine Trichomonas (NONE) Urine Yeast (NONE) Ur Culture Indicated? Discharge instruction Diet regular Activity as started Medications Home Medications Medication Instructions Recorded Confirmed Type Potassium Chloride [Klor-Con] 20 meq PO DAILY #30 tab 12/09/14 12/19/16 Rx Pantoprazole Sodium 1 tab PO QD #30 tab 05/09/16 04/30/17 Clinic Tramadol HCl 1 tab PO TID PRN #90 tab 02/12/16 12/19/16 Clinic Furosemide 20 mg PO Q48H #30 tablet 03/30/16 12/19/16 Clinic Lisinopril 1 tab PO DAILY #30 tab 05/19/16 12/19/16 Clinic Metformin HCl 1,000 mg PO C BK DIN #180 tablet 05/26/16 12/19/16 Clinic Ascorbic Acid [Vitamin C] 1 tab PO QD #30 tab 10/07/16 12/19/16 Clinic Neomyc/Bacit/Polymy Oint 1 applic TOPICAL BID #1 tube 10/07/16 12/19/16 Clinic [Neosporin Oint] Zinc 1 tab PO QD #30 tab 10/07/16 12/19/16 [facility] Atenolol 25 mg PO BEDTIME #30 tablet 10/12/16 12/19/16 Clinic Bupropion HCl [Bupropion HCl Sr] 150 mg PO BID #60 tablet.sa 10/12/16 12/19/16 Clinic Canagliflozin [Invokana] 1 tab PO QD #30 tab 10/12/16 12/19/16 Clinic Nitroglycerin [Nitroglycerin Patch] 0.2 patch TRANSDERM Q24H #30 10/12/16 Clinic patch.[id number] Simvastatin 20 mg PO DAILY #30 tablet 10/12/16 12/19/16 Clinic Warfarin Sodium 4 tab PO DAILY #120 tab 10/14/16 12/19/16 Clinic Albuterol [PROVENTIL HFA] 1 - 2 inh IH .Q4-6H PRN #1 inhaler 12/23/16 Rx Follow-up with her PCP in 1-2 weeks Condition at discharge was stable for discharge Exam - Vitals Vital Signs: Vital Signs Temperature 99.1 F Temperature Source Temporal Artery Scan Pulse Rate [Apical] 62 Pulse Rate [Pulse Oximeter] 62 Respiratory Rate 22 Blood Pressure [Right Arm] 132/73 Blood Pressure [Left Arm] 158/72 Pulse Ox 93 Oxygen Delivery Method Room Air Height 5 ft 2 in Weight 216 lb 11.2 oz - General General Appearance: POSITIVE: No Acute Distress, Obese Additional General Exam Details: Looks better than yesterday - Head Head Exam: POSITIVE: Normal Inspection, Atraumatic - Eye Eye Exam: POSITIVE: Normal Appearance - ENT ENT Exam: POSITIVE: Normal Exam - Neck Neck Exam: POSITIVE: Normal Inspection - Respiratory Respiratory Exam: POSITIVE: Clear to Auscultation - Bilaterally - Cardiovascular Cardiovascular Exam: POSITIVE: RRR - GI/Abdominal GI/Abdominal Exam: POSITIVE: Normal Bowel Sounds, Non Tender, Non Distended, Soft - Rectal Rectal Exam: POSITIVE: Deferred - External Exam: POSITIVE: Deferred - Extremities Additional Extremities Exam Details: Chronic dermatitic changes noted no edema. Few scabs noted - Back Back Exam: POSITIVE: Normal Inspection - Neurological Neurological Exam: POSITIVE: Alert, Oriented x 3, CN II-XII Intact, Moves All Extremities Equally - Psychiatric Psychiatric Exam: POSITIVE: Normal Affect - Integumentary Integumentary Exam: POSITIVE: Normal Color Patient Problems - Patient Problem List (1) Viral syndrome Status: Acute (2) Dehydration Status: Acute (3) Diabetes mellitus type II, controlled Status: Acute (4) Chronic anticoagulation Status: Acute (5) Leukopenia Status: Acute
[2016-12-23] MEDS: BuPROPion SR Tab 150 MG TAB PO SCH (09:25)
[2016-12-23] MEDS: ENOXAPARIN SODIUM 40 MG/0.4 ML SYRINGE SUBCUT SCH (09:25)
[2016-12-23] MEDS: NITROGLYCERIN PATCH 0.2 MG/HR TRANSDERM SCH (09:25)
[2016-12-23] MEDS: CANAGLIFLOZIN 100 MG PO SCH (09:25)
[2016-12-23] MEDS: LISINOPRIL 20 MG TABLET PO SCH (09:25)
[2016-12-23] MEDS: OSELTAMIVIR PHOSPHATE 75 MG CAPSULE PO SCH (09:25)
[2016-12-23] MEDS: Potassium Chloride Tab 10 MEQ TAB PO SCH (09:25)
[2016-12-23 10:27] VITALS: RESP 20; TEMP 97.6
== END 2016-12-23 10:33 | disposition home or self-care (01) | DRG 866 ==
LOC: ER 09:30 → MED/SURG 11:11
PROVIDERS: ADMIT Internal Medicine; ATTEND Internal Medicine
DX: B34.9 Viral infection, unspecified (principal); K52.9 Noninfective gastroenteritis and colitis, unspecified; E86.0 Dehydration; L03.116 Cellulitis of left lower limb; D68.318 Other hemorrhagic disorder due to intrinsic circulating anticoagulants, antibodies, or inhibitors; I10 Essential (primary) hypertension; E11.9 Type 2 diabetes mellitus without complications; E78.00 Pure hypercholesterolemia, unspecified; D72.819 Decreased white blood cell count, unspecified
CPT/HCPCS: 36415; 71010; 80053; 81001; 81003; 82550; 82948; 83605; 83735; 84484; 85025; 85610; 86140; 87040; 87493; 87804; 93005; 93010; 94640; 94761; 96374; 96375; 99285; J0690; J1335; J1650; J1885; J2405; J7030; J7050

== ENCOUNTER → 2017-01-26 | Outpatient (CLI) | payer OTHER | LOC: MMPC 09:00 | PROVIDERS: ATTEND Family Medicine | DX: I10 Essential (primary) hypertension (principal); E11.9 Type 2 diabetes mellitus without complications; I83.022 Varicose veins of left lower extremity with ulcer of calf; E66.8 Other obesity | CPT/HCPCS: 99214; G0463 ==

== ENCOUNTER 2017-05-11 11:04 | Observation (INO) ==
[2017-05-11] MEDS ORDERED: Sodium Chloride 0.9% 1,000 ML PRIMARY IV ONE (11:21)
[2017-05-11] MEDS ORDERED: NORMAL SALINE 10 ML SYRINGE FLUSH IVP PRN ×2 (11:21→15:42)
[2017-05-11] MEDS ORDERED: ONDANSETRON 4 MG/2 ML VIAL IVP ONE (11:21)
--- NOTE | 2017-05-11 11:23 | PDOC ---
Nausea/Vomiting/Diarrhea HPI - General Chief Complaint: Nausea / Vomiting / Diarrhea Stated Complaint: dizziness, nausea and vomitting Date Seen by Provider: 05/11/17 Time Seen by Provider: 11:21 Source: POSITIVE: Patient Exam Limitations: POSITIVE: No limitations Nurse's Notes Reviewed & Considered: Yes EMS Report Reviewed & Considered: Unavailable - History of Present Illness Initial Comments: This is a 72-year-old female who presents to the emergency room with her son with a history of increasing dizziness nausea and vomiting which started about 10:00 this morning. The dizziness is more of vertigo type of a dizziness, with no associated headache. She has no hematemesis or coffee-ground emesis. She has no diarrhea or constipation. No abdominal pain. No urinary urgency or burning. No visual changes. No focal weakness numbness or tingling in her extremities. - Patient Home Medications Home Medications: Home Medications Ascorbic Acid [Vitamin C] 1 tab PO QD #30 tab 10/07/16 Neomyc/Bacit/Polymy Oint [Neosporin Oint] 1 applic TOPICAL BID #1 tube 10/07/16 Zinc 1 tab PO QD #30 tab 10/07/16 Canagliflozin [Invokana] 1 tab PO QD #30 tab 10/12/16 Simvastatin 20 mg PO DAILY #30 tab 10/12/16 Warfarin Sodium 4 tab PO DAILY #120 tab 10/14/16 Albuterol [PROVENTIL HFA] 1 - 2 inh IH .Q4-6H PRN #1 inhaler 12/23/16 Potassium Chloride [Klor-Con M20] 20 meq PO DAILY #30 tab 01/26/17 Furosemide 20 mg PO Q48H #30 tab 02/02/17 Lisinopril 1 tab PO DAILY #30 tab 02/02/17 Atenolol 25 mg PO BEDTIME #30 tab 04/04/17 Nitroglycerin [Nitroglycerin Patch] 0.2 patch TRANSDERM Q24H #30 patch.td24 Bupropion HCl [Bupropion Hcl Sr] 150 mg PO BID #60 tablet.sa 04/21/17 Metformin HCl 1,000 mg PO C BK DIN #180 tab 04/21/17 Potassium Chloride [Klor-Con] 20 meq PO .WITH FUROSEMIDE 05/11/17 - Patient Allergies Allergies/Adverse Reactions: Allergies 3 Allergy/AdvReac Type Severity Reaction Status Date / Time morphine Allergy DYSPHORIA Verified 05/11/17 11:51 Past Medical History - heen HEENT History: Chipped or Loose Teeth 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 CHIPPED/BROKEN TEETH. STATES NOTHING CURRENTLY LOOSE Cardiovascular History: Hypertension, Angina, DVTs, Hyperlipidemia Respiratory History: Snoring Gastrointestinal History: Gallbladder Disease Additional Gastrointestinal History: LAP GALILEO Genitourinary History: Denies History Endocrine History: Type 2 Diabetes (oral) Additional Endocrine History: PLUS INVOKANA FRO DM Musculoskeletal History: Arthritis, Back Pain, Limited ROM, Joint Pain Prosthesis or Implant: No Additional Musculoskeletal History: PATIENT STATES SHE HAS ARTHRITIS HOWEVER NO PRIOR ACTUAL DIAGNOSIS Neurological History: TIA Additional Neurological History: POSSIBLE TIA IN 2013 Blood Disorders: Anemia, Clotting Disorders Additional Blood Disorders History: MULTIPLE PREVIOUS BLOOD CLOTS. Psychiatric History: Depression History of Sexually Transmitted Diseases: No Cancer History: Denies History History of MDRO: No History of Other Communicable Diseases: No Alcohol Use: None In the Past 12 Months, Have Used or Abuse Any Substance: None Previous Surgical History: Yes Type / Date of Surgery: D&C, CHOLECYSTECTOMY Anesthesia Reactions: No Malignant Hyperthermia: No Significant Family History: Heart disease, COPD Additional Family History: Mother has heart disease and COPD Past Medical History Reviewed: Reviewed - No Changes ROS - Limitations ROS Limitations: No Limitations Constitution: DENIES: Chills, Fever Cardiovascular: DENIES: Chest Pain Respiratory: DENIES: Cough Productive, Shortness Of Breath Neurological: REPORTS: Dizziness, Difficulty Walking. DENIES: Headache, Tingling, Numbness, Facial Asymmetry, Weakness Gastrointestinal: REPORTS: Nausea, Vomitting. DENIES: Abdominal Pain, Diarrhea , Constipation Musculoskeletal: DENIES: Muscle Aches Genitourinary: DENIES: Dysuria, Hematuria ENT: REPORTS: Nasal Drainage (Chronic nasal drainage unchanged.). DENIES: Congestion, Sore Throat Skin: DENIES: Rash Psychiatric: NEGATIVE: Confusion Nausea/Vomiting/Diarrhea Exam - General Appearance General Appearance: POSITIVE: Alert, Cooperative, Moderate Distress - HEENT HEENT: POSITIVE: PERRL, EOMI - Respiratory Respiratory: POSITIVE: Breath Sounds Normal. NEGATIVE: No Respiratory Distress , Wheezes, Rales, Rhonchi - Cardiovascular Cardiovascular: POSITIVE: Heart Sounds Normal, Bradycardia - Abdomen Additional Abdominal Details: Abdomen is soft, nontender, nondistended, moderately obese. Active bowel sounds all 4 quadrants. No obvious organomegaly, but exam is limited by body habitus. She has no pulsatile masses or abdominal bruits. - Skin Skin: POSITIVE: Warm, Dry, No Rash - Neurological / Psychological Neurological: POSITIVE: Affect Apporpriate, Oriented X3, Motor Normal, Sensation Normal N/V/D Progress - Results Reviewed by me Lab Results Reviewed by Me: Yes CBC and BMP: 05/11/17 13:19 05/11/17 13:19 EKG Interpreted/Reviewed By Me:: Yes - Patient's Progress Pain Medication Addressed: POSITIVE: Not Applicable Re-examine Time: 14:06 Re-Examine Comment: Still having some vertigo with any movement. Status: POSITIVE: Improved MDM / ED Course: Reinserting course: After initial evaluation, an IV was started. Labs were drawn. She was given a bolus normal saline. She is given Zofran and subsequently Compazine for persistent nausea and vomiting. She has some improvement with the medications and the IV bolus, but was still sniffily vertiginous with any movement. Meclizine was given. Because the patient's son has to work, the patient is very concerned about her safety at home, and would like to be admitted. I believe this is a reasonable request, as her vertigo is still quite severe. - Consult Consulting MD will see pt:: POSITIVE: [facility] [place] Admit Counseled: POSITIVE: Patient, Family, RE: Lab Results, RE: DX Patient Care Time - Estimated PCT Patient Care Time (In Minutes): 20 Vital Signs - Recent Vital Signs Vital Signs: Vital Signs (Last 8 hours) Temp Pulse Pulse Resp BP Pulse Ox 05/11/17 13:10 96.7 F L 47 L 16 143/76 100 05/11/17 11:21 47 L Discharge Clinical Impression: Vertigo Discharge Disposition: Admit to Observation Condition: Fair Follow Up With: ELIECER CURRY [Primary Care Provider] - Date Decision to Admit to Inpatient: 05/11/17 Time Decision to Admit to Inpatient: 14:09
[2017-05-11] MEDS ORDERED: Prochlorperazine Edisylate Inj 10mg/2ml vial IVP ONE (11:32)
[2017-05-11 13:07] LABS: BILIRUBIN,URINE NEGATIVE (NEG); CLARITY,URINE CLEAR (CLEAR); COLOR,URINE YELLOW (Y); GLUCOSE, URINE (UA) 250 mg/dL (NEG); NITRATE,URINE NEGATIVE (NEG); OCCULT BLOOD,URINE Trace-intact (NEG); PROTEIN,URINE 30 mg/dl (NEG); UROBILINOGEN,URINE 0.2 EU/dL (0.2)
[2017-05-11 13:08] LABS: URINE SAMPLE TYPE CATH SPECIMEN
[2017-05-11 13:10] LABS: BACTERIA,URINE RARE; SQUAMOUS EPITHELIAL CELL,UR RARE; WBC,URINE 0-2
[2017-05-11 13:21] LABS: BASOPHILS # (AUTO) 0.02 10*3/UL; BASOPHILS % (AUTO) 0.3 % (0-1); EOSINOPHILS # (AUTO) 0.07 10*3/UL; Hematocrit [HCT] 42.7 % (37.0-47.0); Hemoglobin [HGB] 14.9 g/dL (12.0-16.0); MEAN CORPUSCULAR HGB CONC 34.9 g/dL (33-37); MEAN CORPUSCULAR VOLUME 83.2 FL (81-99); MEAN PLATELET VOLUME 9.3 FL (7.4-12.2); MONOCYTES # (AUTO) 0.22 10*3/UL (0.3-0.8); MONOCYTES % (AUTO) 3.2 % (5-15); NEUTROPHILS % (AUTO) 85.1 % (50-80); RED BLOOD COUNT 5.13 10^6/uL (4.20-5.40)
[2017-05-11 13:35] LABS: PLATELET MORPHOLOGY COMMENT NORMAL MORPHOLOGY (NORM); RBC MORPHOLOGY COMMENT NORMAL MORPHOLOGY (NORM); WBC MORPHOLOGY COMMENT NORMAL MORPHOLOGY (NORM)
[2017-05-11 13:45] LABS: BLOOD UREA NITROGEN 17 mg/dL (7-22); BUN/CREATININE RATIO 21.25 (6-20); SERUM ALBUMIN 3.6 g/dL (3.5-4.8)
[2017-05-11] MEDS ORDERED: Sodium Chloride 0.9% 1,000 ML PRIMARY IV SCH (15:42)
[2017-05-11] MEDS ORDERED: FUROSEMIDE 20 MG TABLET PO SCH (15:42)
[2017-05-11] MEDS ORDERED: ONDANSETRON 4 MG/2 ML VIAL IVP PRN (15:42)
[2017-05-11] MEDS ORDERED: LIDOCAINE W/ SODIUM BICARB 0.5 ML SYR SUBD PRN (15:42)
--- NOTE | 2017-05-11 15:44 | PDOC ---
HPI - History of Present Illness History of Present Illness: This very nice 72-year-old female past medical history significant for diabetes and lives with her son at home. She woke up this morning had coffee and then started having some dizziness accompanied by nausea and vomiting more where the room was spinning and had to sit down son was worried enough to bring her to the ER where at this point she is better with her nausea and vomiting still having some vertigo denies chest pain nausea or vomiting at this time she is speaking in full sentences and seems quite better as she states Past Medical History Medical History: 1. 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 2. Hypertension. 3. depression. 4. High cholesterol. 5. diabetes on oral hypoglycemic agents. 6. History of previous cellulitis in 2015. 7. History of chronic ulceration left leg Surgical History: Open cholecystectomy. Family History: Reviewed an Not Pertinent (No history of diabetes or cancers) Past Social History: Lives at home with her son Tobacco Use: Former Smoker In the Past 12 Months, Have Used or Abuse Any of the Following Substance: None Medication / Allergies Home Medications: Home Medications Medication Instructions Recorded Confirmed Type Ascorbic Acid [Vitamin C] 1 tab PO QD #30 tab 10/07/16 05/11/17 Rx Neomyc/Bacit/Polymy Oint 1 applic TOPICAL BID #1 tube 10/07/16 05/11/17 Rx [Neosporin Oint] Zinc 1 tab PO QD #30 tab 10/07/16 05/11/17 Rx Canagliflozin [Invokana] 1 tab PO QD #30 tab 10/12/16 05/11/17 Rx Simvastatin 20 mg PO DAILY #30 tab 10/12/16 05/11/17 Rx Warfarin Sodium 4 tab PO DAILY #120 tab 10/14/16 05/11/17 Rx Albuterol [PROVENTIL HFA] 1 - 2 inh IH .Q4-6H PRN #1 inhaler 12/23/16 05/11/17 Rx Potassium Chloride [Klor-Con M20] 20 meq PO DAILY #30 tab 01/26/17 05/11/17 Rx Furosemide 20 mg PO Q48H #30 tab 02/02/17 05/11/17 Rx Lisinopril 1 tab PO DAILY #30 tab 02/02/17 05/11/17 Rx Atenolol 25 mg PO BEDTIME #30 tab 04/04/17 05/11/17 Rx Nitroglycerin [Nitroglycerin Patch] 0.2 patch TRANSDERM Q24H #30 04/04/17 Rx patch.td24 Bupropion HCl [Bupropion Hcl Sr] 150 mg PO BID #60 tablet.sa 04/21/17 05/11/17 Clinic Metformin HCl 1,000 mg PO C BK DIN #180 tab 04/21/17 05/11/17 Clinic Potassium Chloride [Klor-Con] 20 meq PO .WITH FUROSEMIDE 05/11/17 05/11/17 History Allergies/Adverse Reactions: Allergies 3 Allergy/AdvReac Type Severity Reaction Status Date / Time morphine Allergy DYSPHORIA Verified 05/11/17 11:51 Review of Systems - Integumentary Integumentary: DENIES: Negative System Review, Rash, Superficial Wound, Laceration, Puncture Wound, Foreign Body, Itching, Dryness, Ulcers, Color Changes, Moles, Hair Loss, Hirsutism, Other, See HPI - Eye Exam Eye Exam: DENIES: Negative System Review, Acuity Good, Acuity Fair, Acuity Poor , Glasses/Contacts, Vision Loss, Blurring, Redness, Diplopia, Catarats, Other, See HPI - Ear/Nose Exam Ear/Nose Exam: DENIES: Negative System Review, Decreased Hearing, Tinnitus, Otalgia, Sinus Pain, Rhinorrhea, Congestion, Anosmia, Epistaxis, Other, See HPI - Mouth/Throat Mouth/Throat Exam: DENIES: Negative System Review, Dental Problems, Oral Ulcers , Sore Throat, Hoarseness, Dysphagia, Dental Pain, Other, See HPI - Cardiovascular Cardiovascular: DENIES: Negative System Review, Chest Pain, Edema, Syncope, Palpitations, Orthopnea, Paroxysmal Nocturnal Dyspnea, Other, See HPI - Gastrointestinal Gastrointestinal / Abdominal: REPORTS: Nausea, Vomiting. DENIES: Negative System Review, Diarrhea, Constipation, Abdominal Pain, Bloody Stool, Poor Appetite, Heartburn, Regurgitation, Bloating, Lactose Intolerance, Melena, Bright Red Blood per Rectum, Other, See HPI - Neurological Neurologic: REPORTS: Dizziness Exam - General General Appearance: No Acute Distress, Cooperative - Head Head Exam: Normal Inspection, Normocephalic, Atraumatic - Eye Eye Exam: POSITIVE: PERRL, EOMI - Respiratory Respiratory Exam: POSITIVE: Clear to Auscultation - Bilaterally, Breathing Non Labored, Normal To Percussion - Cardiovascular Cardiovascular Exam: POSITIVE: RRR, No Murmur, No Clicks, No Gallops - GI/Abdominal GI/Abdominal Exam: POSITIVE: Normal Bowel Sounds, Non Distended, Soft - Extremities Extremities Exam: POSITIVE: Normal Capillary Refill, No Clubbing Present, No Edema Present - Neurological Neurological Exam: POSITIVE: Alert, Oriented x 3, CN II-XII Intact, No Facial Droop - Psychiatric Psychiatric Exam: POSITIVE: Normal Affect, Normal Mood Results - Labs CBC and BMP: 05/11/17 13:19 05/11/17 13:19 Assessment and Plan - Patient Problems (1) Vertigo Current Visit: Yes Status: Acute Comment: Etiology unknown at this point most likely hypotensive we will rehydrate the patient hold blood pressure meds also hold Invokana can cause orthostatic hypotension and nausea will hold this medication Code(s): R42 - Dizziness and giddiness (2) Chronic anticoagulation Current Visit: No Status: Acute Comment: Continue Coumadin as at home pharmacy to manage Code(s): Z79.01 - technician terminal and repeater (current) use of anticoagulants (3) Dehydration Current Visit: No Status: Acute Code(s): E86.0 - Dehydration (4) Diabetes mellitus type II, controlled Current Visit: No Status: Acute Comment: Check hemoglobin A1c hold Invokana check magnesium level Code(s): E11.9 - Type 2 diabetes mellitus without complications
[2017-05-11] MEDS ORDERED: Sodium Chloride 0.9% 1,000 ML with Multivitamin Inj 10 ML, Thiamine Inj 100 MG, Folic A... IV ONE ×5 (16:00)
[2017-05-11 16:17] LABS: HEMOGLOBIN A1C 6.16 % (4.2-6.0)
--- NOTE | 2017-05-11 18:00 | EKG ---
[address] [place] [address] Measurements Intervals [place] Rate: 43 P: 48 KS: 170 QRS: -5 QRSD: 90 T: 47 QT: 471 QTc: 417 Interpretive Statements SINUS BRADYCARDIA Compared to ECG 12/19/2016 10:10:37 Sinus rhythm no longer present Left-axis deviation no longer present Electronically Signed On 05-12-17 09:20:01 MDT by Teddy Sampson [email or web address]
[2017-05-11] MEDS: BuPROPion SR Tab 150 MG TAB PO SCH (20:35)
[2017-05-11] MEDS: ATENOLOL 25 MG TABLET PO SCH (20:35)
[2017-05-11] MEDS: Simvastatin Tab 20 MG TAB PO SCH (20:36)
[2017-05-11] MEDS ORDERED: Warfarin 5 MG TAB PO SCH ×2 (21:00)
[2017-05-12 05:22] LABS: BASOPHILS # (AUTO) 0.04 10*3/UL; BASOPHILS % (AUTO) 0.8 % (0-1); EOSINOPHILS # (AUTO) 0.18 10*3/UL; EOSINOPHILS % (AUTO) 3.8 % (0-8); Hematocrit [HCT] 40.2 % (37.0-47.0); Hemoglobin [HGB] 13.3 g/dL (12.0-16.0); LYMPHOCYTES # (AUTO) 1.44 10*3/uL; MEAN CORPUSCULAR HEMOGLOBIN 28.1 PG (27-31); MEAN CORPUSCULAR HGB CONC 33.1 g/dL (33-37); MEAN PLATELET VOLUME 9.1 FL (7.4-12.2); MONOCYTES # (AUTO) 0.29 10*3/UL (0.3-0.8); NEUTROPHILS # (AUTO) 2.85 10*3/UL; NEUTROPHILS % (AUTO) 59.4 % (50-80); RED BLOOD COUNT 4.73 10^6/uL (4.20-5.40)
[2017-05-12 05:39] LABS: BLOOD UREA NITROGEN 17 mg/dL (7-22); BUN/CREATININE RATIO 18.88 (6-20)
[2017-05-12 05:40] LABS: PLATELET MORPHOLOGY COMMENT NORMAL MORPHOLOGY (NORM); RBC MORPHOLOGY COMMENT NORMAL MORPHOLOGY (NORM); WBC MORPHOLOGY COMMENT NORMAL MORPHOLOGY (NORM)
[2017-05-12] MEDS: LISINOPRIL 20 MG TABLET PO SCH (08:51)
[2017-05-12] MEDS: BuPROPion SR Tab 150 MG TAB PO SCH ×2 (08:51→20:04)
[2017-05-12] MEDS: ASCORBIC ACID 500 MG TABLET PO SCH (08:51)
--- NOTE | 2017-05-12 11:40 | PT.PROG ---
Progress Note Progress Note: S: Subject reports that she has not been dizzy all day, does report that she becomes SOB and occasionally lightheaded. O: Treatment consisted of: Hallpike-jena maneuvers to R/L, with no reports of dizziness, eye movements indicative of L horizontal canal involvement. Eply maneuver 2x for L horizontal canal with no reproduction of symptoms. Eye movements sustained for 2+minutes in each position. Pt tested for dysdiadochokinesia + with deficits, CN testing with CN III, IV, ,and VIII with nystagmus present with inferio-medial movement, Romberg EO: 30"', EC: 30" with increased sway. A: Pt tolerated positioning maneuvers during treatment well this morning, unable to reproduce dizziness symptoms. P: Continue to treat per POC to address established goals and objectives.
--- NOTE | 2017-05-12 12:17 | PDOC(PROG) ---
Interval History: Doing a little better today less vertigo but the one physical therapy started her up for Romberg and she lost her balance. No nausea or vomiting Objective : Data - Labs CBC and BMP: 05/12/17 05:00 05/12/17 05:11 Objective : Exam - General General Appearance: Cooperative - Head Head Exam: Normal Inspection - Respiratory Respiratory Exam: Clear to Auscultation - Bilaterally, Breathing Non Labored, Normal To Percussion - Cardiovascular Cardiovascular Exam: RRR, No Murmur, No Clicks - Extremities Extremities Exam: No Clubbing Present, No Edema Present Assessment and Plan - Patient Problems (1) Vertigo Current Visit: Yes Status: Acute Comment: Some balance issue with Torie we'll order MRI of her head to rule out cerebellar infarct Code(s): R42 - Dizziness and giddiness (2) Chronic anticoagulation Current Visit: No Status: Acute Comment: Continue Coumadin Code(s): Z79.01 - licensed optician (current) use of anticoagulants (3) Dehydration Current Visit: No Status: Acute Code(s): E86.0 - Dehydration (4) Diabetes mellitus type II, controlled Current Visit: No Status: Acute Comment: Hemoglobin A1c 6.1 I will resume the metformin but will stop Invokana patient states she cannot afford to buy it anymore and I would agree it is probably not needed at this point Code(s): E11.9 - Type 2 diabetes mellitus without complications
[2017-05-12] MEDS ORDERED: metFORMIN 500 MG TABLET PO ONE (12:19)
--- NOTE | 2017-05-12 13:34 | DI ---
MRI Brain WO Contrast,05/12/2017 12:12 PM: Clinical History: Vertigo Previous Exam: None at this facility. Findings: Multiplanar MR images are obtained through the brain without contrast, and demonstrate diffuse age-re lated volume loss. There is no mass, hemorrhage or midline shift. There is some fluid within the depe ndent mastoid air cells bilaterally. There is no abnormally restricted diffusion. The upper cervical spine is unremarkable. Intraorbital structures are unremarkable. Paranasal sinuses are also unremarkable. The midline structures are normal. The sella and parasellar region is unremarkable. The cerebellopontine angles are within normal limits. Impression: 1. Few scattered areas of increased FLAIR and T2 signal most likely representing small vessel ischemi c change. 2. Trace amount of fluid within the mastoid air cells bilaterally could represent some mastoiditis. T his can be a cause of dizziness. Correlate clinically.
--- NOTE | 2017-05-12 14:43 | OTI REPORT ---
Thank you for the referral of Rasheeda Maurer. She was seen on 05/11/17 for an occupational therapy inpatient evaluation secondary to vertigo, chronic anti- coagulant dehydration, and Type II Diabetes. SUBJECTIVE: The patient is a 72-year-old female who reports that she got up to make coffee, got dressed, started moving around, and the more she moved around the dizzier she got. She states she started vomiting. Her son says he left the patient alone for approximately 40 minutes while he ran to the store and when he came back she was very nauseous and vomiting. The patient reports that her son called an ambulance. Once she got on the ambulance she started spinning. She noticed that the spinning does worsen with changing positions. Typically at home the patient is not on oxygen. The patient's son reports that she got two different anti-nausea medicines in the ER. The therapist did look this up later with nursing staff and the patient did get Zofran and Compazine as well as some Saline as they thought maybe she was a little bit dehydrated. When the therapist came to the room the pharmacist was up there and he said there were four drugs that the patient was on that may possibly cause dizziness as well. Her son reported that they had said her heart rate was semi low on the ambulance. The patient does have Diabetes as well. PAST MEDICAL HISTORY: Past medical history can be found in the patient's medical record. OBJECTIVE FINDINGS: Vitals: Blood pressure was 125/69 before we started treatment. After we had moved around a little bit her heart rate was 158/69. Visual tracking: The patient demonstrated good visual tracking. Vertigo activities: The patient was positioned in right hansne pike, left hansen pike, and the roll test. The patient was negative on the right for the right hansen pike. On the left we did have some nystagmus that was geotropic when turning head to the left; however, she did not have any symptoms of increased dizziness when this was happening. Also, in the roll test the patient was negative on the right and negative on the left. We had the patient participate in Hernandez-Daroff exercises and she did not demonstrate an increase in dizziness ; however, once she laid down after this test and came to a sitting position, she started having some lateral nystagmus for approximately 5 seconds and stated that the dizziness was beginning again when lifting her head. ASSESSMENT: At this time, results are not necessarily conclusive; however, she more than likely has a left posterior canal canalithiasis. The patient's symptoms may have been masked a little bit by the anti-nausea medicines that she received in the ER. At this point the therapist thinks it will be best if we reassess in the morning and we can start treating her for left BPPV of the posterior canal. The patient's symptoms were minimal, but sometimes even with a little bit of nystagmus, we could treat the patient for left posterior canal. Short-Term Goals: To be met by discharge from inpatient: Patient will participate in vestibular rehabilitation and be independent with a home exercise program for her visual vestibular system. Patient will have positive results while being treated for left posterior canal canalithiasis of BPPV. Long-Term Goals: To be met following discharge from inpatient: Patient will be able to return home, not having any dizziness symptoms. TREATMENT PLAN: Patient will be seen B.I.D during the week and one time per day over the weekend as an inpatient to address the above goals and objectives. INITIAL TREATMENT: Treatment today consisted of the initial evaluation activities only. JOSEPH
[2017-05-12] MEDS: Simvastatin Tab 20 MG TAB PO SCH (20:04)
[2017-05-12] MEDS: ATENOLOL 25 MG TABLET PO SCH (20:04)
[2017-05-12] MEDS ORDERED: Warfarin 5 MG TAB PO SCH (21:00)
[2017-05-13 04:23] VITALS: O2SAT 94
[2017-05-13 06:53] VITALS: BP 148/43; RESP 18; TEMP 98
[2017-05-13] MEDS: LISINOPRIL 20 MG TABLET PO SCH (08:42)
[2017-05-13] MEDS: BuPROPion SR Tab 150 MG TAB PO SCH (08:42)
[2017-05-13] MEDS: ASCORBIC ACID 500 MG TABLET PO SCH (08:42)
[2017-05-13] MEDS ORDERED: cefTRIAXone Inj 2 GM in Sodium Chloride 0.9% 100 ML IV SCH (09:00)
--- NOTE | 2017-05-13 10:37 | OT PM DAY ---
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 The patient also reported a lot of knee stiffness today. The therapist, along with the nursing staff, decided to work on more balance and vestibular type activities to see how the patient would function at home. The patient reports that she has had no dizziness all day today. The patient's MRI showed not a lot of significant changes in the brain. O: Today the patient transferred from sit to stand and ambulated down to therapy which was approximately 300 feet. The patient has a very difficult time with knee flexion while walking. She basically walks from her hips and had to hang on to hand rails while ambulating down the hallway. When asked if she was interested in a cane or walker, she stated "No, I do not want any of those items as I will just get lazy." Once down in therapy the patient required a five minute rest break before she engaged in any other activities. Today we worked on visual tracking from side to side, up and down, and in circular motions. We had the patient stand and engage in a balance task with a balloon. She stood x5 minutes while batting a balloon for dynamic standing and visual tracking; she did not get dizzy with this. She was able to machine operator picker the balloon from the floor four different times with increased difficulty. The patient then performed balance activities including two hurtles, the foam block , and a 2" step. The patient was not able to step over any of these items; instead she did a hip swing to get around them. Once on the foam block the patient became very off balance. She needed max assist to stand on the block for 30 seconds at a time. The patient had difficulty doing the stairs and stepping off. Her right knee seems to hurt her worse than her left knee. The patient then ambulated back up to her room with three rest breaks. A: The patient's dizziness seems to have subsided. There are other factors that are probably close to her baseline before coming in to the hospital including moderately severe knee pain and decreased knee flexion with walking. When she is sitting she can bend her knees to 90 degrees; however, when she is walking she has increased pain with knee flexion. The patient may want to go see an orthopedist for some injections or to have her knees assessed. The patient may not be a surgical candidate secondary to all of her medical history. P: Continue seeing patient BID during the week and one time per day over the weekend for upper extremity strengthening, ADLs, and overall functional mobility. JOSEPH
--- NOTE | 2017-05-13 10:50 | DCSUMMARY ---
Hospitalization Summary Hospital Course: Final Discharge Diagnosis: Current Visit Problems Problem Status Onset Code Vertigo Acute R42 Diagnostic Data, Laboratory Data, and Procedures of Signifigance: Laboratory Results 05/11/17 05/11/17 05/11/17 Range/Units 13:07 13:19 13:19 WBC 6.82 (4.8-10.8) 10^3/uL RBC 5.13 (4.20-5.40) 10^6/uL Hgb 14.9 (12.0-16.0) g/dL Hct 42.7 (37.0-47.0) % MCV 83.2 (81-99) FL MCH 29.0 (27-31) PG MCHC 34.9 (33-37) g/dL RDW Std Deviation 44.1 (39-50) fL RDW Coeff of Patricia 14.9 H (11.5-14.5) % Plt Count 181 (140-350) 10*3/uL MPV 9.3 (7.4-12.2) FL Immature Gran % (Auto) 0.1 (0-5) % Neut % (Auto) 85.1 H (50-80) % Lymph % (Auto) 10.3 (10-50) % [place] % (Auto) 3.2 L (5-15) % Eos % (Auto) 1.0 (0-8) % Baso % (Auto) 0.3 (0-1) % Immature Gran # (Auto) 0.01 10*3/UL Neut # (Auto) 5.80 10*3/UL Lymph # (Auto) 0.70 10*3/uL [place] # (Auto) 0.22 L (0.3-0.8) 10*3/UL Eos # (Auto) 0.07 10*3/UL Baso # (Auto) 0.02 10*3/UL WBC Morphology Comment Normal morphology (NORM) Plt Morphology Comment Normal morphology (NORM) RBC Morph Comment Normal morphology (NORM) PT (9.7-11.4) secs INR (0.00-5.90) N/A Sodium 144 (135-145) meq/L Potassium 4.1 (3.8-5.2) meq/L Chloride 110 (98-112) meq/L Carbon Dioxide 22 L (23-33) meq/L Anion Gap 12 (5-20) BUN 17 (7-22) mg/dL Creatinine 0.8 (0.50-1.20) mg/dL BUN/Creatinine Ratio 21.25 H (6-20) Glucose 197 H (78-110) mg/dL Mean Blood Glucose mg/dL Hemoglobin A1c (4.2-6.0) % Calculated Osmolality 304.0 H (267-292) mOsm/kg Calcium 10.2 (8.7-10.7) mg/dL Magnesium (1.6-2.4) mg/dL Total Bilirubin 0.7 (0.3-1.2) mg/dL AST 18 (8-39) IU/L ALT 26 (9-52) IU/L Alkaline Phosphatase 53 (38-126) IU/L Troponin I (< 0.040) ng/mL Total Protein 6.4 (6.1-8.0) g/dL Albumin 3.6 (3.5-4.8) g/dL Globulin 2.9 (2.50-4.10) g/dL Albumin/Globulin Ratio 1.20 L (1.3-2.0) mg/g Ur Collection Type Cath specimen Urine Color Yellow (Y) Urine Clarity Clear (CLEAR) Urine pH 6.0 (5.0-8.5) Ur Specific Gates 1.025 (1.005-1.030) Urine Protein 30 A (NEG) mg/dl Urine Glucose (UA) 250 (NEG) mg/dL Urine Ketones Trace A (NEG) Urine Occult Blood Trace-intact H (NEG) Urine Nitrate Negative (NEG) Urine Bilirubin Negative (NEG) Urine Urobilinogen 0.2 (0.2) EU/dL Ur Leukocyte Esterase Negative (NEG) Urine RBC 3-5 (NONE) /hpf Urine WBC 0-2 (NONE) Ur Squamous Epith Cells Rare (NONE) Ur Renal Epithelial Cell None (NONE) Urine Crystals None Urine Bacteria Rare (NONE) Urine Casts None (NONE) Urine Mucus Moderate (NONE) Urine Trichomonas None (NONE) Urine Yeast None (NONE) Ur Culture Indicated? Culture not set 05/11/17 05/11/17 05/11/17 Range/Units 13:19 16:06 16:06 WBC (4.8-10.8) 10^3/uL RBC (4.20-5.40) 10^6/uL Hgb (12.0-16.0) g/dL Hct (37.0-47.0) % MCV (81-99) FL MCH (27-31) PG MCHC (33-37) g/dL RDW Std Deviation (39-50) fL RDW Coeff of Patricia (11.5-14.5) % Plt Count (140-350) 10*3/uL MPV (7.4-12.2) FL Immature Gran % (Auto) (0-5) % Neut % (Auto) (50-80) % Lymph % (Auto) (10-50) % [place] % (Auto) (5-15) % Eos % (Auto) (0-8) % Baso % (Auto) (0-1) % Immature Gran # (Auto) 10*3/UL Neut # (Auto) 10*3/UL Lymph # (Auto) 10*3/uL [place] # (Auto) (0.3-0.8) 10*3/UL Eos # (Auto) 10*3/UL Baso # (Auto) 10*3/UL WBC Morphology Comment (NORM) Plt Morphology Comment (NORM) RBC Morph Comment (NORM) PT 30.5 H (9.7-11.4) secs INR 2.85 (0.00-5.90) N/A Sodium (135-145) meq/L Potassium (3.8-5.2) meq/L Chloride (98-112) meq/L Carbon Dioxide (23-33) meq/L Anion Gap (5-20) BUN (7-22) mg/dL Creatinine (0.50-1.20) mg/dL BUN/Creatinine Ratio (6-20) Glucose (78-110) mg/dL Mean Blood Glucose mg/dL Hemoglobin A1c (4.2-6.0) % Calculated Osmolality (267-292) mOsm/kg Calcium (8.7-10.7) mg/dL Magnesium 1.9 (1.6-2.4) mg/dL Total Bilirubin (0.3-1.2) mg/dL AST (8-39) IU/L ALT (9-52) IU/L Alkaline Phosphatase (38-126) IU/L Troponin I < 0.012 (< 0.040) ng/mL Total Protein (6.1-8.0) g/dL Albumin (3.5-4.8) g/dL Globulin (2.50-4.10) g/dL Albumin/Globulin Ratio (1.3-2.0) mg/g Ur Collection Type Urine Color (Y) Urine Clarity (CLEAR) Urine pH (5.0-8.5) Ur Specific Gates (1.005-1.030) Urine Protein (NEG) mg/dl Urine Glucose (UA) (NEG) mg/dL Urine Ketones (NEG) Urine Occult Blood (NEG) Urine Nitrate (NEG) Urine Bilirubin (NEG) Urine Urobilinogen (0.2) EU/dL Ur Leukocyte Esterase (NEG) Urine RBC (NONE) /hpf Urine WBC (NONE) Ur Squamous Epith Cells (NONE) Ur Renal Epithelial Cell (NONE) Urine Crystals Urine Bacteria (NONE) Urine Casts (NONE) Urine Mucus (NONE) Urine Trichomonas (NONE) Urine Yeast (NONE) Ur Culture Indicated? 05/11/17 05/11/17 05/12/17 Range/Units 16:06 21:32 05:00 WBC 4.80 (4.8-10.8) 10^3/uL RBC 4.73 (4.20-5.40) 10^6/uL Hgb 13.3 (12.0-16.0) g/dL Hct 40.2 (37.0-47.0) % MCV 85.0 (81-99) FL MCH 28.1 (27-31) PG MCHC 33.1 (33-37) g/dL RDW Std Deviation 44.4 (39-50) fL RDW Coeff of Patricia 14.8 H (11.5-14.5) % Plt Count 203 (140-350) 10*3/uL MPV 9.1 (7.4-12.2) FL Immature Gran % (Auto) 0 (0-5) % Neut % (Auto) 59.4 (50-80) % Lymph % (Auto) 30.0 (10-50) % [place] % (Auto) 6.0 (5-15) % Eos % (Auto) 3.8 (0-8) % Baso % (Auto) 0.8 (0-1) % Immature Gran # (Auto) 0 10*3/UL Neut # (Auto) 2.85 10*3/UL Lymph # (Auto) 1.44 10*3/uL [place] # (Auto) 0.29 L (0.3-0.8) 10*3/UL Eos # (Auto) 0.18 10*3/UL Baso # (Auto) 0.04 10*3/UL WBC Morphology Comment Normal morphology (NORM) Plt Morphology Comment Normal morphology (NORM) RBC Morph Comment Normal morphology (NORM) PT (9.7-11.4) secs INR (0.00-5.90) N/A Sodium (135-145) meq/L Potassium (3.8-5.2) meq/L Chloride (98-112) meq/L Carbon Dioxide (23-33) meq/L Anion Gap (5-20) BUN (7-22) mg/dL Creatinine (0.50-1.20) mg/dL BUN/Creatinine Ratio (6-20) Glucose (78-110) mg/dL Mean Blood Glucose 119.128 mg/dL Hemoglobin A1c 6.16 H (4.2-6.0) % Calculated Osmolality (267-292) mOsm/kg Calcium (8.7-10.7) mg/dL Magnesium (1.6-2.4) mg/dL Total Bilirubin (0.3-1.2) mg/dL AST (8-39) IU/L ALT (9-52) IU/L Alkaline Phosphatase (38-126) IU/L Troponin I < 0.012 (< 0.040) ng/mL Total Protein (6.1-8.0) g/dL Albumin (3.5-4.8) g/dL Globulin (2.50-4.10) g/dL Albumin/Globulin Ratio (1.3-2.0) mg/g Ur Collection Type Urine Color (Y) Urine Clarity (CLEAR) Urine pH (5.0-8.5) Ur Specific Gates (1.005-1.030) Urine Protein (NEG) mg/dl Urine Glucose (UA) (NEG) mg/dL Urine Ketones (NEG) Urine Occult Blood (NEG) Urine Nitrate (NEG) Urine Bilirubin (NEG) Urine Urobilinogen (0.2) EU/dL Ur Leukocyte Esterase (NEG) Urine RBC (NONE) /hpf Urine WBC (NONE) Ur Squamous Epith Cells (NONE) Ur Renal Epithelial Cell (NONE) Urine Crystals Urine Bacteria (NONE) Urine Casts (NONE) Urine Mucus (NONE) Urine Trichomonas (NONE) Urine Yeast (NONE) Ur Culture Indicated? 05/12/17 Range/Units 05:11 WBC (4.8-10.8) 10^3/uL RBC (4.20-5.40) 10^6/uL Hgb (12.0-16.0) g/dL Hct (37.0-47.0) % MCV (81-99) FL MCH (27-31) PG MCHC (33-37) g/dL RDW Std Deviation (39-50) fL RDW Coeff of Patricia (11.5-14.5) % Plt Count (140-350) 10*3/uL MPV (7.4-12.2) FL Immature Gran % (Auto) (0-5) % Neut % (Auto) (50-80) % Lymph % (Auto) (10-50) % [place] % (Auto) (5-15) % Eos % (Auto) (0-8) % Baso % (Auto) (0-1) % Immature Gran # (Auto) 10*3/UL Neut # (Auto) 10*3/UL Lymph # (Auto) 10*3/uL [place] # (Auto) (0.3-0.8) 10*3/UL Eos # (Auto) 10*3/UL Baso # (Auto) 10*3/UL WBC Morphology Comment (NORM) Plt Morphology Comment (NORM) RBC Morph Comment (NORM) PT (9.7-11.4) secs INR (0.00-5.90) N/A Sodium 143 (135-145) meq/L Potassium 4.0 (3.8-5.2) meq/L Chloride 111 (98-112) meq/L Carbon Dioxide 22 L (23-33) meq/L Anion Gap 10 (5-20) BUN 17 (7-22) mg/dL Creatinine 0.9 (0.50-1.20) mg/dL BUN/Creatinine Ratio 18.88 (6-20) Glucose 134 H (78-110) mg/dL Mean Blood Glucose mg/dL Hemoglobin A1c (4.2-6.0) % Calculated Osmolality 299.0 H (267-292) mOsm/kg Calcium 9.8 (8.7-10.7) mg/dL Magnesium (1.6-2.4) mg/dL Total Bilirubin (0.3-1.2) mg/dL AST (8-39) IU/L ALT (9-52) IU/L Alkaline Phosphatase (38-126) IU/L Troponin I (< 0.040) ng/mL Total Protein (6.1-8.0) g/dL Albumin (3.5-4.8) g/dL Globulin (2.50-4.10) g/dL Albumin/Globulin Ratio (1.3-2.0) mg/g Ur Collection Type Urine Color (Y) Urine Clarity (CLEAR) Urine pH (5.0-8.5) Ur Specific Gates (1.005-1.030) Urine Protein (NEG) mg/dl Urine Glucose (UA) (NEG) mg/dL Urine Ketones (NEG) Urine Occult Blood (NEG) Urine Nitrate (NEG) Urine Bilirubin (NEG) Urine Urobilinogen (0.2) EU/dL Ur Leukocyte Esterase (NEG) Urine RBC (NONE) /hpf Urine WBC (NONE) Ur Squamous Epith Cells (NONE) Ur Renal Epithelial Cell (NONE) Urine Crystals Urine Bacteria (NONE) Urine Casts (NONE) Urine Mucus (NONE) Urine Trichomonas (NONE) Urine Yeast (NONE) Ur Culture Indicated? History and Physical pertinent to Admission: Course of Hospitalization: Is a very nice 72-year-old female who comes in with the vertigo this started acutely at home after she woke up around 10:00 was admitted to the hospital was rehydrated her Invokana was stopped which can cause dizziness nausea and vomiting PTOT was consulted. Her dizziness improved by the next day an MRI of her head was done to make sure she did not have a cerebellar cerebellar infarct on MRI results were normal acute findings. She has been walking without dizziness nausea or vomiting. MRI did show maybe mild mastoiditis she was given 2 g of ceftriaxone and a 75 of Augmentin to take for 5 more days at home. I have advised her to stop Invokana since her hemoglobin A1c is 6.1 and she will continue taking metformin she will discuss this further with her primary care physician On the date of discharge, the patient was examined: Gen.: No acute distress, alert, nontoxic Heart: Regular rate and rhythm, no murmurs, clicks, gallops, or rubs Lungs: Clear to auscultation bilaterally, breathing is nonlabored Abdomen/GI: Normal tones on auscultation, soft, nontender, nondistended Musculoskeletal/extremities: No clubbing, cyanosis, or edema Vitals reviewed and are listed below Assessment and Plan: 1. As per discharge assessments above 2. Disposition: Home 3. Condition on discharge, stable and improved. 4. Diet: regular diet 5. Activities: resume normal activities 6. Follow-Up: 1. PCP 2. 7. Medications at the Time of Discharge: Home Medications Medication Instructions Recorded Confirmed Type Ascorbic Acid [Vitamin C] 1 tab PO QD #30 tab 10/07/16 05/11/17 Rx Neomyc/Bacit/Polymy Oint 1 applic TOPICAL BID #1 tube 10/07/16 05/11/17 Rx [Neosporin Oint] Zinc 1 tab PO QD #30 tab 10/07/16 05/11/17 Rx Simvastatin 20 mg PO DAILY #30 tab 10/12/16 05/11/17 Rx Warfarin Sodium 4 tab PO DAILY #120 tab 10/14/16 05/11/17 Rx Albuterol [PROVENTIL HFA] 1 - 2 inh IH .Q4-6H PRN #1 inhaler 12/23/16 05/11/17 Rx Potassium Chloride [Klor-Con M20] 20 meq PO DAILY #30 tab 01/26/17 05/11/17 Rx Furosemide 20 mg PO Q48H #30 tab 02/02/17 05/11/17 Rx Lisinopril 1 tab PO DAILY #30 tab 02/02/17 05/11/17 Rx Atenolol 25 mg PO BEDTIME #30 tab 04/04/17 05/11/17 Rx Nitroglycerin [Nitroglycerin Patch] 0.2 patch TRANSDERM Q24H #30 04/04/17 Rx patch.td24 Bupropion HCl [Bupropion HCl Sr] 150 mg PO BID #60 tablet.sa 04/21/17 05/11/17 Clinic Metformin HCl 1,000 mg PO C BK DIN #180 tab 04/21/17 05/11/17 Clinic Amox Tr/Potassium Clavulanate 1 ea PO BID #10 tab 05/13/17 Rx [Augmentin 875-125 Tablet] 3 Generic Name Dose Route Start Last Admin Trade Name Freq PRN Reason Stop Dose Admin Ascorbic Acid 500 mg 05/12/17 09:00 05/13/17 08:42 Vitamin C PO 500 mg DAILY SYBIL Administration Atenolol 25 mg 05/11/17 21:00 05/12/17 20:04 Tenormin PO 25 mg BEDTIME SYBIL Administration Bupropion HCl 150 mg 05/11/17 21:00 05/13/17 08:42 Wellbutrin Sr Tab PO 150 mg BID SYBIL Administration Sodium Chloride 25 mls @ 200 mls/hr 05/11/17 15:42 05/13/17 08:43 Normal Saline 0.9% IV 200 mls/hr .Post Infusion PRN Administration No Primary IV for Flush ONLY Ceftriaxone Sodium 2 gm/ 100 mls @ 200 mls/hr 05/13/17 09:00 05/13/17 08:42 Sodium Chloride IV 200 mls/hr Q24H SYBIL Administration Lidocaine HCl 0.5 ml 05/11/17 15:42 Lidocaine Buffered Inj SUBD ONCE PRN IV Starts Lisinopril 40 mg 05/12/17 09:00 05/13/17 08:42 Prinivil PO 40 mg DAILY SYBIL Administration Ondansetron HCl 4 mg 05/11/17 15:42 Zofran Inj IVP Q4H PRN NAUSEA / VOMITING Simvastatin 20 mg 05/11/17 21:00 05/12/17 20:04 Zocor PO 20 mg BEDTIME SYBIL Administration Sodium Chloride 5 - 20 ml 05/11/17 15:42 05/13/17 08:43 Saline Flush IVP 10 ml BID PRN Administration Flush Warfarin Sodium 15 mg 05/11/17 21:00 05/11/17 20:36 Coumadin PO 15 mg SuMoWeFr SYBIL Administration Warfarin Sodium 20 mg 05/12/17 21:00 05/12/17 20:04 Coumadin PO 20 mg TuThSa SYBIL Administration 8. Time, care, counseling and coordination of care for this discharge is greater than 30 minutes. 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
--- NOTE | 2017-05-13 15:45 | OT AM DAY ---
Diagnosis : Vertigo AM - Occupational Therapy S: The patient reports she is hopefully going to go home this afternoon. O: Today the patient participated in balance activities and functional activities including ambulating 300 feet. She performed upper body ergometer x4 minutes forward and 4 minutes backward, balance grid with max assist, and balloon reaching task for standing x6 minutes. The patient then walked back up to her room. A: The patient is not experiencing dizziness; however, she could still benefit from further balance training as she does have limited mobility in bilateral knees. P: Continue seeing patient BID during the week and one time per day over the weekend for upper extremity strengthening, ADLs, and overall functional mobility. JOSEPH
== END 2017-05-13 11:16 | disposition home or self-care (01) ==
LOC: MED/SURG 11:04 → ER 11:04
PROVIDERS: ADMIT Internal Medicine; ATTEND Internal Medicine

== ENCOUNTER 2018-11-24 13:27 | Observation (INO) ==
[2018-11-24] MEDS ORDERED: ONDANSETRON 4 MG/2 ML VIAL IVP ONE (13:31)
[2018-11-24] MEDS ORDERED: Sodium Chloride 0.9% 1,000 ML PRIMARY IV ONE (13:31)
[2018-11-24 13:38] LABS: BASOPHILS # (AUTO) 0.02 10*3/UL; BASOPHILS % (AUTO) 0.2 % (0-1); EOSINOPHILS # (AUTO) 0.12 10*3/UL; EOSINOPHILS % (AUTO) 1.1 % (0-8); Hematocrit [HCT] 48.5 % (37.0-47.0); Hemoglobin [HGB] 17.1 g/dL (12.0-16.0); LYMPHOCYTES # (AUTO) 0.75 10*3/uL; MEAN CORPUSCULAR HEMOGLOBIN 29.5 PG (27-31); MEAN CORPUSCULAR HGB CONC 35.3 g/dL (33-37); MEAN CORPUSCULAR VOLUME 83.8 FL (81-99); MEAN PLATELET VOLUME 9.6 FL (7.4-12.2); MONOCYTES # (AUTO) 0.35 10*3/UL (0.3-0.8); MONOCYTES % (AUTO) 3.3 % (5-15); NEUTROPHILS # (AUTO) 9.28 10*3/UL; NEUTROPHILS % (AUTO) 88.2 % (50-80); RED BLOOD COUNT 5.79 10^6/uL (4.20-5.40)
[2018-11-24 13:47] LABS: BLOOD UREA NITROGEN 25 mg/dL (7-22); SERUM ALBUMIN 4.4 g/dL (3.5-4.8)
[2018-11-24 13:49] LABS: LIPASE 47 IU/L (23-300)
[2018-11-24 13:52] LABS: PLATELET MORPHOLOGY COMMENT NORMAL MORPHOLOGY (NORM); RBC MORPHOLOGY COMMENT NORMAL MORPHOLOGY (NORM); WBC MORPHOLOGY COMMENT NORMAL MORPHOLOGY (NORM)
[2018-11-24] MEDS ORDERED: ASPIRIN 81 MG (BABY) CHEWABLE TABLET PO ONE (14:47)
--- NOTE | 2018-11-24 15:02 | PDOC ---
General Adult HPI - General Chief Complaint: Chest Pain Stated Complaint: CHEST DISCOMFORT/HYPERGLYCEMIA Date Seen by Provider: 11/24/18 Time Seen by Provider: 14:40 Source: POSITIVE: Patient, EMS Exam Limitations: POSITIVE: No limitations Nurse's Notes Reviewed & Considered: Yes EMS Report Reviewed & Considered: Verbal - History of Present Illness Initial Comment: The patient is a 73-year-old female who is brought to the emergency to [facility] by ambulance with complaints of lightheadedness, sweating and some vague discomfort across the epigastric/lower chest region. She states that she has not felt well all morning. These symptoms started approximately an hour to 2 hours prior to arrival here in the emergency department. When EMS arrived on scene they checked her blood sugar and found that it was over 300. They had initially been called because the family thought her blood sugar might be low. Her vital signs were unremarkable and a 12-lead EKG done in the field showed no obvious ST segme nt depression or elevation in a sinus rhythm. On arrival the patient states she continues to have a vague discomfort in the epigastric/lower chest region she states that she did have a deep Belch on her way in here. She admits that she does have a history of acid reflux and takes antacids as needed. She denies any associated palpitation or shortness of breath. She does not have any known history of heart disease. She is diabetic and states that she has a history of blood clots. She does take warfarin. She also is treated for hypertension and hyperlipidemia. She admits that she ran out of her metformin several days ago. She denies fevers. She does have chronic swelling in both legs. Have you received a tetanus shot in the past 10 years?: Yes - Patient Home Medications Home Medications: Home Medications Ascorbic Acid [Vitamin C] 1 tab PO QD #30 tab 10/07/16 Zinc 1 tab PO QD #30 tab 10/07/16 Albuterol [PROVENTIL HFA] 1 - 2 inh IH .Q4-6H PRN #1 inhaler 12/23/16 Bupropion HCl [Bupropion HCl Sr] 150 mg PO BID #60 tablet.sa 04/21/17 cephalexin 500 mg capsule 500 mg PO TID #21 cap 05/18/18 atenolol 25 mg tablet 25 mg PO BEDTIME #30 tab 05/24/18 neomycin-bacitracn Zn-polymyxn 3.5 mg-400 unit-5,000 unit top oint pkt 1 applic TOPICAL BID #1 tube 05/24/18 potassium chloride ER 20 mEq tablet,extended release(part/cryst) 20 meq PO DAILY #30 tab 05/24/18 simvastatin 20 mg tablet 20 mg PO DAILY #30 tab 05/24/18 warfarin 5 mg tablet 20 mg PO DAILY #120 tab 05/24/18 bupropion HCl SR 150 mg tablet,12 hr sustained-release 150 mg PO BID #60 tab 08/23/18 furosemide 20 mg tablet 20 mg PO Q OTHER DAY #30 tab 08/23/18 lisinopril 40 mg tablet 40 mg PO QDAY #30 tab 08/23/18 metformin 500 mg tablet 1,000 mg PO BID #360 tab 08/23/18 nitroglycerin 0.6 mg/hr transdermal 24 hour patch 1 patch TOPICAL Q24H #30 ea 08/23/18 - Patient Allergies Allergies/Adverse Reactions: Allergies Allergy/AdvReac Type Severity Reaction Status Date / Time morphine Allergy DYSPHORIA Verified 11/24/18 14:36 Past Medical History - heen HEENT History: Chipped or Loose Teeth 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 CHIPPED/BROKEN TEETH. STATES NOTHING CURRENTLY LOOSE Cardiovascular History: Hypertension, Angina, DVTs, Hyperlipidemia Respiratory History: Snoring Gastrointestinal History: Gallbladder Disease Additional Gastrointestinal History: LAP GALILEO Genitourinary History: Denies History Endocrine History: Type 2 Diabetes (oral) Additional Endocrine History: PLUS INVOKANA FRO DM Musculoskeletal History: Arthritis, Back Pain, Limited ROM, Joint Pain Prosthesis or Implant: No Additional Musculoskeletal History: PATIENT STATES SHE HAS ARTHRITIS HOWEVER NO PRIOR ACTUAL DIAGNOSIS Neurological History: TIA Additional Neurological History: POSSIBLE TIA IN 2013 Blood Disorders: Anemia, Clotting Disorders Additional Blood Disorders History: MULTIPLE PREVIOUS BLOOD CLOTS. Psychiatric History: Depression History of Sexually Transmitted Diseases: No Female Reproductive History: Denies History LMP: UNKNOWN Obstetrical History: Denies History Cancer History: Denies History In Past Year Been Physically Harmed or Verbally Threatened: No History of MDRO: No History of Other Communicable Diseases: No Tobacco Use: Never Smoker Alcohol Use: None In the Past 12 Months, Have Used or Abuse Any Substance: None Previous Surgical History: Yes Type / Date of Surgery: D&C, CHOLECYSTECTOMY Anesthesia Reactions: No Malignant Hyperthermia: No Significant Family History: Heart disease, COPD Additional Family History: Mother has heart disease and COPD Past Medical History Reviewed: Reviewed - No Changes ROS - Limitations ROS Limitations: No Limitations Constitution: REPORTS: Weakness (Generalized weakness and malaise, lightheadedness). DENIES: Chills, Fever Cardiovascular: REPORTS: Chest Pain (Lower chest/epigastric pain for the past couple of hours) Respiratory: REPORTS: Denies Resp Symptoms Neurological: REPORTS: Dizziness. DENIES: Headache, Numbness, Weakness Gastrointestinal: REPORTS: Nausea. DENIES: Vomitting Endocrine: REPORTS: Fatigue Musculoskeletal: REPORTS: Lower Extremity Swelling (Chronic) Genitourinary: REPORTS: Denies Symptoms Eyes: REPORTS: Denies Symptoms ENT: REPORTS: Denies Symptoms Skin: DENIES: Rash General Adult Exam - General Appearance General Appearance: POSITIVE: Alert, Cooperative, No Acute Distress - HEENT HEENT: POSITIVE: Head Inspection Nml, Ears Inspection Nml, Nose Inspection Nml, Pharynx Inspect. Nml - Neck Neck: POSITIVE: Normal Inspection, Lymphadenopathy - Respiratory Respiratory: POSITIVE: No Respiratory Distress, Breath Sounds Normal - Cardiovascular Cardiovascular: POSITIVE: Regular Rate & Rhythm, No Murmur Peripheral Pulses: Dorsalis-pedis (R): 2+, Dorsalis-pedis (L): 2+ - Abdomen Abdomen: Soft: (All Quadrants), Denies Tenderness: (All Quadrants), No Distenti on: (All Quadrants) - Skin Skin: POSITIVE: Normal Color, No Rash - Extremities Extremity: Normal ROM: (All Extremities) Additional Extremities Details: She does have significant swelling to both lower extremities - Neurological / Psychological Neurological: 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 CTA of the chest showed no evidence of PE, evidence of pulmonary hypertension and possible subpulmonic stenosis per radiologist. Lab Results Reviewed by Me: Yes Lab Results:: Laboratory Results 11/24/18 11/24/18 11/24/18 13:20 13:20 13:20 WBC RBC Hgb Hct MCV MCH MCHC RDW Std Deviation RDW Coeff of Patricia Plt Count MPV Immature Gran % (Auto) Neut % (Auto) Lymph % (Auto) [place] % (Auto) Eos % (Auto) Baso % (Auto) Immature Gran # (Auto) Neut # (Auto) Lymph # (Auto) [place] # (Auto) Eos # (Auto) Baso # (Auto) WBC Morphology Comment Plt Morphology Comment RBC Morph Comment PT INR D-Dimer 1.86 H Sodium Potassium Chloride Carbon Dioxide Anion Gap BUN Creatinine BUN/Creatinine Ratio Glucose Calculated Osmolality Calcium Magnesium 1.9 Total Bilirubin AST ALT Alkaline Phosphatase Troponin I < 0.012 C-Reactive Protein 0.8 Total Protein Albumin Globulin Albumin/Globulin Ratio Amylase Lipase 11/24/18 11/24/18 11/24/18 13:20 13:20 13:20 WBC 10.53 RBC 5.79 H Hgb 17.1 H Hct 48.5 H MCV 83.8 MCH 29.5 MCHC 35.3 RDW Std Deviation 40.1 RDW Coeff of Patricia 13.2 Plt Count 260 MPV 9.6 Immature Gran % (Auto) 0.1 Neut % (Auto) 88.2 H Lymph % (Auto) 7.1 L [place] % (Auto) 3.3 L Eos % (Auto) 1.1 Baso % (Auto) 0.2 Immature Gran # (Auto) 0.01 Neut # (Auto) 9.28 Lymph # (Auto) 0.75 [place] # (Auto) 0.35 Eos # (Auto) 0.12 Baso # (Auto) 0.02 WBC Morphology Comment Normal morphology Plt Morphology Comment Normal morphology RBC Morph Comment Normal morphology PT 10.0 INR 0.98 D-Dimer Sodium 138 Potassium 3.8 Chloride 105 Carbon Dioxide 21 L Anion Gap 12 BUN 25 H Creatinine 1.0 BUN/Creatinine Ratio 25.00 H Glucose 307 H Calculated Osmolality 301.0 H Calcium 10.6 Magnesium Total Bilirubin 0.9 AST 19 ALT < 6 L Alkaline Phosphatase 101 Troponin I C-Reactive Protein Total Protein 7.9 Albumin 4.4 Globulin 3.5 Albumin/Globulin Ratio 1.20 L Amylase Lipase 11/24/18 13:20 WBC RBC Hgb Hct MCV MCH MCHC RDW Std Deviation RDW Coeff of Patricia Plt Count MPV Immature Gran % (Auto) Neut % (Auto) Lymph % (Auto) [place] % (Auto) Eos % (Auto) Baso % (Auto) Immature Gran # (Auto) Neut # (Auto) Lymph # (Auto) [place] # (Auto) Eos # (Auto) Baso # (Auto) WBC Morphology Comment Plt Morphology Comment RBC Morph Comment PT INR D-Dimer Sodium Potassium Chloride Carbon Dioxide Anion Gap BUN Creatinine BUN/Creatinine Ratio Glucose Calculated Osmolality Calcium Magnesium Total Bilirubin AST ALT Alkaline Phosphatase Troponin I C-Reactive Protein Total Protein Albumin Globulin Albumin/Globulin Ratio Amylase 72 Lipase 47 CBC and BMP: 11/24/18 13:20 11/24/18 13:20 EKG Interpreted/Reviewed By Me:: Yes EKG Interpretation:: POSITIVE: Other (EKG done in the field showed normal sinus rhythm with no acute ST segment or T-wave changes) - Patient's Progress MDM / ED Course: The patient's blood sugar in route was 300. Initial EKG showed normal sinus rhythm with no acute ST segment changes from the EKG in the field. Her initial vital signs were unremarkable. Initial workup reveals a normal troponin with an elevated d-dimer at 1.86. Her CBC was unremarkable. Her amylase and lipase were normal and her CRP was 0.8. Her INR was subtherapeutic at 0.98. Because of the subtherapeutic INR, history of blood clots, chest discomfort and elevated d-dimer a CT of the chest was ordered. This showed no evidence of PE. The patient does have multiple risk factors for coronary artery disease. Findings and recommendations were discussed with the patient and the family. I also did discuss the patient with Dr. Shukla was agreed to admit the patient for further workup. - Consult Counseled: POSITIVE: Patient, Family, RE: Lab Results, RE: Radiology Results, RE: DX Patient Care Time - Estimated PCT Patient Care Time (In Minutes): 35 Vital Signs - Recent Vital Signs Vital Signs: Vital Signs (Last 8 hours) Temp Pulse Resp BP Pulse Ox 11/24/18 14:41 97.6 F 64 16 148/82 94 - VS Reviewed Vital Signs Reviewed: Yes Discharge Clinical Impression: Chest pain, Epigastric pain, Subtherapeutic international normalized ratio (INR), Elevated blood sugar, Noncompliance with medication regimen Discharge Disposition: Admit to Observation Condition: Fair
--- NOTE | 2018-11-24 15:29 | DI ---
AP CHEST X-RAY, 11/24/2018 1:31 PM : Clinical History: Epigastric pain. Previous Exam: 12/20/2016. Soft Tissues: No acute soft tissue abnormality. Bones: Normal. Heart: Normal heart. Lungs: No infiltrates. Effusion(s): None. Mediastinum: Normal mediastinum. Nodules: No pulmonary nodules. Reading: Normal chest x-ray.
--- NOTE | 2018-11-24 16:00 | DI ---
CT ANGIOGRAM OF THE CHEST, 11/24/2018 2:26 PM : Clinical History: Chest pressure. Elevated D-dimer test. Previous Exam: None at this facility. Technique: Scans from base of neck to lung bases with IV contrast. Bolus tracking protocol was used f or timing the injection. Non-MIPS and MIPS sagittal/coronal images generated. IV Contrast: 65 mL of Isovue 300. Base of Neck: Normal. Nodes: Normal axillary, supraclavicular, mediastinal, and hilar lymph nodes. Heart: Normal. No coronary artery calcifications. Aorta: Normal thoracic aorta. No aneurysm or dissection. Pulmonary Arteries: Because of apparent tachycardia, opacification of the pulmonary arteries is subop timal. No clots are visualized to at least the third and larger fourth order branches. Subtle clots c ould be missed. There is pulmonary arterial hypertension in the main pulmonary artery is markedly dil ated raising the possibility of pulmonic stenosis. Lungs: No infiltrates. No evidence of chronic lung disease. Effusion(s): None. Nodules: None. Bony Structures: Normal visualized portions of ribs, sternum, scapulae, clavicles, and shoulders. Nor mal visualized portions of thoracic spine. Limited Upper Abdomen: Both adrenal glands are normal. There is moderate splenomegaly. The liver is o f low density consistent with diffuse fatty infiltration, mild. Limited views of the pancreas are nor mal. READIN. Technically limited study because of decreased opacification of the pulmonary arteries. No clots are visualized to the third or the larger fourth order branches. There is pulmonary arterial hyperten leslie without underlying chronic lung disease raising the possibility of other causes of chronic hypox ia. The main pulmonary artery shows poststenotic dilatation suggesting there may be pulmonic stenosis . 2. Suspected fatty infiltration of the liver. Moderate splenomegaly.
[2018-11-24] MEDS ORDERED: Insulin Sliding Scale Protocol SUBCUT PRN (16:15)
[2018-11-24] MEDS ORDERED: NITROGLYCERIN TOPICAL SCH (16:15)
[2018-11-24] MEDS ORDERED: Glucagon Inj Vial 1 MG/ML VIAL IM PRN (16:15)
[2018-11-24] MEDS ORDERED: CALCIUM CARBONATE 500 MG (TUMS) CHEWABLE TABLET PO PRN (16:15)
[2018-11-24] MEDS ORDERED: DEXTROSE 50%-WATER SYRINGE 50 ML SYRINGE IVP PRN (16:15)
[2018-11-24] MEDS ORDERED: LIDOCAINE W/ SODIUM BICARB 0.5 ML SYR SUBD PRN (16:15)
[2018-11-24] MEDS ORDERED: NITROGLYCERIN 0.4 MG SL TAB (BOTTLE OF 3) SL PRN (16:15)
[2018-11-24] MEDS ORDERED: DEXTROSE 31 GM GEL PO PRN (16:15)
[2018-11-24] MEDS ORDERED: ONDANSETRON 4 MG/2 ML VIAL IVP PRN (16:15)
[2018-11-24] MEDS: Insulin Lispro Flexpen 300 UNIT/3 ML INSULN.PEN SUBCUT SCH ×2 (17:36→20:13)
--- NOTE | 2018-11-24 17:58 | EKG ---
[address] [address] Measurements Intervals [place] Rate: 66 P: 53 NM: 170 QRS: -38 QRSD: 91 T: 51 QT: 407 QTc: 420 Interpretive Statements SINUS RHYTHM LEFT AXIS DEVIATION POSSIBLE ANTERIOR MYOCARDIAL INFARCTION OF INDETERMINATE AGE Compared to ECG 05/11/2017 11:22:14 Left-axis deviation now present Possible Myocardial infarct finding now present Sinus bradycardia no longer present Electronically Signed On 11-24-18 18:54:31 MDT by Teddy Sampson [email or web address]
[2018-11-24] MEDS ORDERED: NITROGLYCERIN 0.4 MG SL TAB (BOTTLE OF 3) SL ONE (18:37)
--- NOTE | 2018-11-24 19:08 | PDOC ---
HPI - History of Present Illness Date of Service: 11/24/18 Time of Service: 18:39 Chief Complaint: chest pain History of Present Illness: This is a 73 YO female with DMII, HTN, macular degeneration, who presents with increased belching over the past few days, chest discomfort that she describes as pressure and fluttery like. She states she felt sweaty, had nausea and felt flushed from her head to her toes. She has not had this happen before. There were no exertional components to the symptoms. Initial troponin was negative in the ER. CT scan was negative for pulmonary emboli. She denies shortness of breath. She states she does get acid reflux symptoms and has been under financial stress and family stress as her son needs back surgery. She does not smoke, she has high cholesterol, has hypertension and diabetes and a positive history in the family for heart disease. She notably is on a nitroglycerine patch but ran out a week ago, and was not able to refill the medication. 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 Past Medical History Medical History: 1. 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 on coumadin, subtherapeutic. 2. Hypertension. 3. depression. 4. hypercholesterolemia. 5. diabetes on oral hypoglycemic agents. 6. History of previous cellulitis in 2015. 7. History of chronic ulceration left leg, probably venous stasis ulcers Surgical History: Open cholecystectomy. Family History: Reviewed an Not Pertinent Pertinent Family History: significant for heart disease Past Social History: Lives at home with her son. quit smoking remotely. does not drink alcohol. . had three children. Tobacco Use: Never Smoker In the Past 12 Months, Have Used or Abuse Any of the Following Substance: None Alcohol Use: None Medication / Allergies Home Medications: Home Medications Medication Instructions Recorded Confirmed Type Ascorbic Acid [Vitamin C] 1 tab PO QD #30 tab 10/07/16 11/24/18 Rx Zinc 1 tab PO QD #30 tab 10/07/16 11/24/18 Rx Albuterol [PROVENTIL HFA] 1 - 2 inh IH .Q4-6H PRN #1 inhaler 12/23/16 11/24/18 Rx Bupropion HCl [Bupropion HCl Sr] 150 mg PO BID #60 tablet.sa 04/21/17 11/24/18 Clinic cephalexin 500 mg capsule 500 mg PO TID #21 cap 05/18/18 11/24/18 Rx atenolol 25 mg tablet 25 mg PO BEDTIME #30 tab 05/24/18 11/24/18 Rx neomycin-bacitracn Zn-polymyxn 3.5 1 applic TOPICAL BID #1 tube 05/24/18 11/24/18 Rx mg-400 unit-5,000 unit top oint pkt potassium chloride ER 20 mEq 20 meq PO DAILY #30 tab 05/24/18 11/24/18 Rx tablet,extended release(part/cryst) simvastatin 20 mg tablet 20 mg PO DAILY #30 tab 05/24/18 11/24/18 Rx warfarin 5 mg tablet 20 mg PO DAILY #120 tab 05/24/18 11/24/18 Rx bupropion HCl SR 150 mg tablet,12 150 mg PO BID #60 tab 08/23/18 11/24/18 Rx hr sustained-release furosemide 20 mg tablet 20 mg PO Q OTHER DAY #30 tab 08/23/18 11/24/18 Rx lisinopril 40 mg tablet 40 mg PO QDAY #30 tab 08/23/18 11/24/18 Rx metformin 500 mg tablet 1,000 mg PO BID #360 tab 08/23/18 11/24/18 Rx nitroglycerin 0.6 mg/hr 1 patch TOPICAL Q24H #30 ea 08/23/18 11/24/18 Rx transdermal 24 hour patch Allergies/Adverse Reactions: Allergies Allergy/AdvReac Type Severity Reaction Status Date / Time morphine Allergy DYSPHORIA Verified 11/24/18 14:36 Review of Systems - Review of Systems All Systems: Reviewed & No Additional Complaints Except as Stated (I did a 12 point review systems and it was negative other than that discussed below and in the history of present illness.) - Eye Exam Eye Exam: REPORTS: Other (has macular degeneration but does not visit the eye doctor.) Exam - Vitals Vital Signs: Vital Signs Temperature 98.1 F Temperature Source Temporal Artery Scan Pulse Rate [Pulse Oximeter] 92 Respiratory Rate 22 Blood Pressure [Right Arm] 152/79 Blood Pressure [Left Arm] 148/82 Pulse Ox 96 Oxygen Delivery Method Room Air Height 5 ft 2 in Weight 218 lb 12.8 oz - General General Appearance: No Acute Distress, Cooperative - Head Head Exam: Normal Inspection, Normocephalic, Atraumatic - Eye Eye Exam: POSITIVE: No Scleral Icterus - ENT ENT Exam: POSITIVE: Mucous Membranes Moist Additonal ENT Exam Details: poor dentition, several missing teeth - Neck Neck Exam: Normal Inspection, No Tenderness, No Lymphadenopathy, No Thyromegaly, JVP is not Raised - Respiratory Respiratory Exam: POSITIVE: Clear to Auscultation - Bilaterally, Breathing Non Labored, Normal to Percussion and Palpation - Cardiovascular Cardiovascular Exam: POSITIVE: RRR, No Murmur, No Clicks, No Gallops, No Rubs, No JVD - GI/Abdominal GI/Abdominal Exam: POSITIVE: Normal Bowel Sounds, Non Tender, Non Distended, Soft - Rectal Rectal Exam: POSITIVE: Deferred - External Exam: POSITIVE: Deferred Exam: POSITIVE: Deferred - Extremities Extremities Exam: POSITIVE: No Clubbing Present, No Edema Present, No Cyanosis Present - Back Back Exam: POSITIVE: No CVA Tenderness - Neurological Neurological Exam: POSITIVE: Alert, Oriented x 3, No Facial Droop, Speech Intact / Clear, Moves All Extremities Equally - Psychiatric Psychiatric Exam: POSITIVE: Normal Affect, Normal Mood - Integumentary Additional Integumentary Exam Details: on left lower extremity, has a clean, probably venous stasis ulcer on calf, distal third Results - Labs CBC and BMP: 11/24/18 13:20 11/24/18 13:20 Additional Lab Results: Laboratory Results 11/24/18 11/24/18 11/24/18 13:20 13:20 13:20 WBC RBC Hgb Hct MCV MCH MCHC RDW Std Deviation RDW Coeff of Patricia Plt Count MPV Immature Gran % (Auto) Neut % (Auto) Lymph % (Auto) [place] % (Auto) Eos % (Auto) Baso % (Auto) Immature Gran # (Auto) Neut # (Auto) Lymph # (Auto) [place] # (Auto) Eos # (Auto) Baso # (Auto) WBC Morphology Comment Plt Morphology Comment RBC Morph Comment PT INR D-Dimer 1.86 H Sodium Potassium Chloride Carbon Dioxide Anion Gap BUN Creatinine BUN/Creatinine Ratio Glucose Calculated Osmolality Calcium Magnesium 1.9 Total Bilirubin AST ALT Alkaline Phosphatase Troponin I < 0.012 C-Reactive Protein 0.8 Total Protein Albumin Globulin Albumin/Globulin Ratio Amylase Lipase 11/24/18 11/24/18 11/24/18 13:20 13:20 13:20 WBC 10.53 RBC 5.79 H Hgb 17.1 H Hct 48.5 H MCV 83.8 MCH 29.5 MCHC 35.3 RDW Std Deviation 40.1 RDW Coeff of Patricia 13.2 Plt Count 260 MPV 9.6 Immature Gran % (Auto) 0.1 Neut % (Auto) 88.2 H Lymph % (Auto) 7.1 L [place] % (Auto) 3.3 L Eos % (Auto) 1.1 Baso % (Auto) 0.2 Immature Gran # (Auto) 0.01 Neut # (Auto) 9.28 Lymph # (Auto) 0.75 [place] # (Auto) 0.35 Eos # (Auto) 0.12 Baso # (Auto) 0.02 WBC Morphology Comment Normal morphology Plt Morphology Comment Normal morphology RBC Morph Comment Normal morphology PT 10.0 INR 0.98 D-Dimer Sodium 138 Potassium 3.8 Chloride 105 Carbon Dioxide 21 L Anion Gap 12 BUN 25 H Creatinine 1.0 BUN/Creatinine Ratio 25.00 H Glucose 307 H Calculated Osmolality 301.0 H Calcium 10.6 Magnesium Total Bilirubin 0.9 AST 19 ALT < 6 L Alkaline Phosphatase 101 Troponin I C-Reactive Protein Total Protein 7.9 Albumin 4.4 Globulin 3.5 Albumin/Globulin Ratio 1.20 L Amylase Lipase 11/24/18 13:20 WBC RBC Hgb Hct MCV MCH MCHC RDW Std Deviation RDW Coeff of Patricia Plt Count MPV Immature Gran % (Auto) Neut % (Auto) Lymph % (Auto) [place] % (Auto) Eos % (Auto) Baso % (Auto) Immature Gran # (Auto) Neut # (Auto) Lymph # (Auto) [place] # (Auto) Eos # (Auto) Baso # (Auto) WBC Morphology Comment Plt Morphology Comment RBC Morph Comment PT INR D-Dimer Sodium Potassium Chloride Carbon Dioxide Anion Gap BUN Creatinine BUN/Creatinine Ratio Glucose Calculated Osmolality Calcium Magnesium Total Bilirubin AST ALT Alkaline Phosphatase Troponin I C-Reactive Protein Total Protein Albumin Globulin Albumin/Globulin Ratio Amylase 72 Lipase 47 - EKG Data -: EKG Interpreted by Me Rate: Normal EKG Shows Normal: Sinus Rhythm - Imaging Status: Image Reviewed by Me (chest x-ray looks negative for pneumonia. CT scan looks negative for pneumonia), Report Reviewed by Me (I reviewed the radiology reports as well.) Assessment and Plan - Patient Problems (1) Chest pain Current Visit: Yes Status: Acute Code(s): R07.9 - Chest pain, unspecified (2) Subtherapeutic international normalized ratio (INR) Current Visit: Yes Status: Acute Code(s): R79.1 - Abnormal coagulation profile (3) Stasis ulcer of left lower extremity Current Visit: No Status: Acute Onset Date: 12/16/14 Code(s): I83.029 - Varicose veins of left lower extremity with ulcer of unspecified site (4) Hypertension Current Visit: Yes Status: Acute Onset Date: 12/16/14 Code(s): I10 - Essential (primary) hypertension Qualifiers: Hypertension type: essential hypertension Qualified Code(s): I10 - Essential (primary) hypertension (5) Hypercholesterolemia Current Visit: Yes Status: Chronic Onset Date: 10/31/15 Code(s): E78.00 - Pure hypercholesterolemia, unspecified (6) Diabetes mellitus with hyperglycemia Current Visit: Yes Status: Chronic Code(s): E11.65 - Type 2 diabetes mellitus with hyperglycemia Qualifiers: Diabetes mellitus type: type 2 Diabetes mellitus custodial insulin use: wit hout custodial use Qualified Code(s): E11.65 - Type 2 diabetes mellitus with hyperglycemia - Assessment / Plan Additional Assessment/Plan Details: 1. Do serial enzymes and repeat EKG as necessary 2. Aspirin daily. 3. will consider beta alex if necessary 4. if diagnosis becomes ACS or unstable angina, add therapeutic lovenox, otherwise will dose for DVT prophylaxis 5. We'll have the patient do a stress test [chemical] 6. the history is suggestive of esophageal spasm and GERD. She told me she had a negative EGD a couple years ago and was told to take PPI on a PRN basis. I will start protonix. 5. Nitroglycerin when necessary for chest pain, will give a 0.4 mg dose now and start nitrobid 2.5 mg BID 6. Morphine if necessary via IV if pain persists 7. Oxygen if necessary 8. If testing indicates further need for evaluation, discussion with cardiology. If testing is negative for myocardial infarction and no further indication for coronary artery disease, consider outpatient workup for GI source, pulmonary source, or other 9. check cholesterol, TSH, and free T4 level 10. resume coumadin. daily PT and INR. patient is do not resusitate. plan above discussed with the patient and she agrees. mepilex dressing to stasis ulcer.
[2018-11-24] MEDS: Warfarin 5 MG TAB PO SCH (20:11)
[2018-11-24] MEDS: Simvastatin Tab 20 MG TAB PO SCH (20:12)
[2018-11-24] MEDS: BuPROPion SR Tab 150 MG TAB PO SCH (20:12)
[2018-11-24] MEDS: NITROGLYCERIN SR 2.5 MG CAPSULE PO SCH (22:04)
[2018-11-25 05:38] LABS: CHOL/HDL RATIO 3.53 RATIO (0-4.0); HEMOGLOBIN A1C 8.14 % (4.2-6.0)
[2018-11-25] MEDS: Insulin Lispro Flexpen 300 UNIT/3 ML INSULN.PEN SUBCUT SCH ×4 (07:05→20:48)
[2018-11-25] MEDS: BuPROPion SR Tab 150 MG TAB PO SCH ×2 (09:07→20:48)
[2018-11-25] MEDS: ENOXAPARIN SODIUM 40 MG/0.4 ML SYRINGE SUBCUT SCH (09:07)
[2018-11-25] MEDS: LISINOPRIL 20 MG TABLET PO SCH (09:07)
[2018-11-25] MEDS: NITROGLYCERIN SR 2.5 MG CAPSULE PO SCH ×2 (09:07→20:47)
[2018-11-25] MEDS: ASCORBIC ACID Chewable 500 MG TABLET PO SCH (09:07)
[2018-11-25] MEDS ORDERED: PANTOPRAZOLE IV 40 MG VIAL IVP ONE (10:45)
--- NOTE | 2018-11-25 10:54 | PDOC(PROG) ---
Date of Service: 11/25/18 Time of Service: 10:48 Interval History: Still having chest heaviness. Enzymes were negative for myocardial infarction. No nausea or vomiting. Belching frequently. Objective : Data - Labs CBC and BMP: 11/24/18 13:20 11/24/18 13:20 Additional Lab Results: Selected Entries 11/24/18 21:00 11/25/18 07:00 Finger Stick Blood Glucose 239 H 243 H 11/24/18 11/24/18 11/25/18 13:20 18:45 00:00 Hemoglobin A1c Troponin I < 0.012 < 0.012 < 0.012 Triglycerides Cholesterol LDL Cholesterol, Calc VLDL Cholesterol HDL Cholesterol Cholesterol/HDL Ratio TSH Free T4 11/25/18 11/25/18 11/25/18 04:51 04:51 04:51 Hemoglobin A1c 8.14 H Troponin I Triglycerides 90 Cholesterol 113 L LDL Cholesterol, Calc 63.000 VLDL Cholesterol 18 HDL Cholesterol 32 L Cholesterol/HDL Ratio 3.53 TSH 0.356 Free T4 1.34 Objective : Exam - General General Appearance: No Acute Distress, Cooperative Additional General Exam Details: Vital Signs - Last Taken Temperature 96.9 F 11/25/18 09:00 Pulse Rate 70 11/25/18 09:00 Respiratory Rate 16 11/25/18 09:00 Blood Pressure 144/75 11/25/18 09:00 Pulse Ox 98 11/25/18 09:00 - Eye Eye Exam: No Scleral Icterus - ENT ENT Exam: Mucous Membranes Moist - Neck Neck Exam: JVP is not Raised - Respiratory Respiratory Exam: Clear to Auscultation - Bilaterally, Breathing Non Labored - Cardiovascular Cardiovascular Exam: RRR, No Murmur, No Clicks, No Gallops, No Rubs, No JVD - GI/Abdominal GI/Abdominal Exam: Normal Bowel Sounds, Non Tender, Non Distended, Soft - Extremities Extremities Exam: No Clubbing Present, No Cyanosis Present, +1 Edema - Neurological Neurological Exam: Alert, Oriented x 3, No Facial Droop, Speech Intact / Clear, Moves All Extremities Equally - Integumentary Additional Integumentary Exam Details: Stasis ulcers dressed with Mepilex Assessment and Plan - Patient Problems (1) Chest pain Current Visit: Yes Status: Acute Code(s): R07.9 - Chest pain, unspecified (2) Diabetes mellitus with hyperglycemia Current Visit: Yes Status: Chronic Code(s): E11.65 - Type 2 diabetes mellitus with hyperglycemia Qualifiers: Diabetes mellitus type: type 2 Diabetes mellitus exterminator helper insulin use: without exterminator helper use Qualified Code(s): E11.65 - Type 2 diabetes mellitus with hyperglycemia (3) Subtherapeutic international normalized ratio (INR) Current Visit: Yes Status: Acute Code(s): R79.1 - Abnormal coagulation profile (4) Stasis ulcer of left lower extremity Current Visit: No Status: Acute Onset Date: 12/16/14 Code(s): I83.029 - Varicose veins of left lower extremity with ulcer of unspecified site (5) Hypertension Current Visit: Yes Status: Acute Onset Date: 12/16/14 Code(s): I10 - Essential (primary) hypertension Qualifiers: Hypertension type: essential hypertension Qualified Code(s): I10 - Essential (primary) hypertension (6) Hypercholesterolemia Current Visit: Yes Status: Chronic Onset Date: 10/31/15 Code(s): E78.00 - Pure hypercholesterolemia, unspecified (7) GERD (gastroesophageal reflux disease) Current Visit: Yes Status: Acute Code(s): K21.9 - Gastro-esophageal reflux disease without esophagitis Qualifiers: Esophagitis presence: esophagitis presence not specified Qualified Code(s): K21.9 - Gastro-esophageal reflux disease without esophagitis - Assessment / Plan Additional Assessment/Plan Details: I reviewed the prior record, the patient had H. pylori with chronic gastritis by EGD in 2016. She was treated with triple therapy. However she is not on any continued proton pump inhibitor. I will give her some Protonix today. Stress portion of Lexiscan stress test done this morning. Given hemoglobin A1c up above 8, I will add Lantus. Rest portion of stress test tomorrow. Once images are compiled, radiology reads stress test, then we will risk stratify the patient based on stress test results. Continue nitroglycerin for blood pressure. Still subtherapeutic, continue Coumadin and check INR again tomorrow.
--- NOTE | 2018-11-25 14:35 | STRESSTEST ---
[facility] [place] Interpretive Statements This is a 73 YO female with chest pain, ruled out for CA, has risk factors of family history, diabetes mellitus, and high cholesterol. Stressed with Vanessa scan protocol. Resting EKG is NSR. With vasodilator, the patient had belching, and mild hypotensive response, had cramping sensation in stomach. Otherwise no significant findings on EKG tracings. Plan: stress images today, rest images tomorrow, radiology to review, risk stratification based on results to follow. [email or web address]
[2018-11-25] MEDS ORDERED: NYSTATIN 15 GM POWDER TOPICAL PRN (17:25)
[2018-11-25] MEDS: Warfarin 5 MG TAB PO SCH (20:47)
[2018-11-25] MEDS: Simvastatin Tab 20 MG TAB PO SCH (20:47)
[2018-11-25] MEDS: Insulin Glargine SoloStar Inj 100 UNIT/ML INSULN.PEN SUBCUT SCH (20:48)
[2018-11-25] MEDS: PANTOPRAZOLE IV 40 MG VIAL IVP SCH (20:56)
[2018-11-26] MEDS: Insulin Lispro Flexpen 300 UNIT/3 ML INSULN.PEN SUBCUT SCH ×4 (07:41→20:03)
[2018-11-26] MEDS: NITROGLYCERIN SR 2.5 MG CAPSULE PO SCH ×2 (09:21→20:02)
[2018-11-26] MEDS: LISINOPRIL 20 MG TABLET PO SCH (09:21)
[2018-11-26] MEDS: PANTOPRAZOLE IV 40 MG VIAL IVP SCH ×2 (09:21→20:02)
[2018-11-26] MEDS: ENOXAPARIN SODIUM 40 MG/0.4 ML SYRINGE SUBCUT SCH (09:21)
[2018-11-26] MEDS: BuPROPion SR Tab 150 MG TAB PO SCH ×2 (09:21→20:02)
[2018-11-26] MEDS: ASCORBIC ACID Chewable 500 MG TABLET PO SCH (09:21)
[2018-11-26] MEDS ORDERED: Hold Metformin-See Instruction 1 EACH MIS PRN (13:29)
--- NOTE | 2018-11-26 13:34 | PDOC(PROG) ---
Date of Service: 11/26/18 Time of Service: 13:31 Interval History: Patient seen and evaluated earlier No chest pain, no shortness of breath Continues to have belching, upper epigastric abdominal discomfort Discussed with son at bedside Objective : Data - Labs CBC and BMP: 11/24/18 13:20 11/24/18 13:20 Objective : Exam - General General Appearance: No Acute Distress, Cooperative Additional General Exam Details: Vital Signs - Last Taken Temperature 97.3 F 11/26/18 12:05 Pulse Rate 68 11/26/18 12:05 Respiratory Rate 16 11/26/18 12:05 Blood Pressure 126/69 11/26/18 12:05 Pulse Ox 96 11/26/18 12:05 - Eye Eye Exam: No Scleral Icterus - ENT ENT Exam: Mucous Membranes Moist - Neck Neck Exam: JVP is not Raised - Respiratory Respiratory Exam: Clear to Auscultation - Bilaterally, Breathing Non Labored - Cardiovascular Cardiovascular Exam: RRR, No Murmur, No Clicks, No Gallops, No Rubs, No JVD - GI/Abdominal GI/Abdominal Exam: Normal Bowel Sounds, Non Tender, Non Distended, Soft - Extremities Extremities Exam: No Clubbing Present, No Edema Present, No Cyanosis Present - Neurological Neurological Exam: Alert, Oriented x 3, No Facial Droop, Speech Intact / Clear, Moves All Extremities Equally Assessment and Plan - Patient Problems (1) Chest pain Current Visit: Yes Status: Acute Code(s): R07.9 - Chest pain, unspecified (2) GERD (gastroesophageal reflux disease) Current Visit: Yes Status: Acute Code(s): K21.9 - Gastro-esophageal reflux disease without esophagitis Qualifiers: Esophagitis presence: esophagitis presence not specified Qualified Code(s): K21.9 - Gastro-esophageal reflux disease without esophagitis (3) Diabetes mellitus with hyperglycemia Current Visit: Yes Status: Chronic Code(s): E11.65 - Type 2 diabetes mellitus with hyperglycemia Qualifiers: Diabetes mellitus type: type 2 Diabetes mellitus group home insulin use: without group home use Qualified Code(s): E11.65 - Type 2 diabetes mellitus with hyperglycemia (4) Subtherapeutic international normalized ratio (INR) Current Visit: Yes Status: Acute Code(s): R79.1 - Abnormal coagulation profile (5) Stasis ulcer of left lower extremity Current Visit: No Status: Acute Onset Date: 12/16/14 Code(s): I83.029 - Va ricose veins of left lower extremity with ulcer of unspecified site (6) Hypertension Current Visit: Yes Status: Acute Onset Date: 12/16/14 Code(s): I10 - Essential (primary) hypertension Qualifiers: Hypertension type: essential hypertension Qualified Code(s): I10 - Essential (primary) hypertension (7) Hypercholesterolemia Current Visit: Yes Status: Chronic Onset Date: 10/31/15 Code(s): E78.00 - Pure hypercholesterolemia, unspecified - Assessment / Plan Additional Assessment/Plan Details: Continue PPI, IV dose Protonix twice a day. I will get CT scan of abdomen and pelvis in the morning. Will not be able to get today due to radiation from stress test. Await stress test results. Rest images to be done this afternoon. I discussed Coumadin versus Eliquis versus Xarelto--patient would be very interested, along with her son, and exploring cost with these medications. With hemoglobin A1c over 8, I think the patient should probably be on Lantus as well. We started her on 10 units last night. Labs in a.m. Son, patient, all in agreement with plan.
--- NOTE | 2018-11-26 14:58 | DI ---
2 DAY LEXISCAN STRESS & REST MYOCARDIAL PERFUSION SCANS, 11/25/2018-11/26/2018: Clinical History: Chest pain. Previous Exam: None at this facility. Monitoring Physician: Dr. Parrish Shukla. Dose: Stress dose: 37 mCi on 11/25/2018. Rest dose: 37 mCi on 11/24/2016. Quantitative Analysis: Nipendo program without and with low dose limited CT chest scan attenuati on correction. Exam Quality: Excellent. Rejected Beats: Stress = 0%; Rest = 0%. HR: Stress = 56-61 b/m; Rest = 61-6 4 b/m. Left Ventricular Chamber Sizes: Normal at stress and rest. Transient Ischemic Dilatation Ratio: 0.81. Normal Manjit TID <= 1.22; normal Lexiscan TID <= 1.33. LVEF: Stress: 69%. Rest: 70%. Myocardial Perfusion: The non-attenuated corrected scans are completely normal at stress and rest. Th e attenuated corrected scans show a subtle lateral basal defect at stress that does improve with rest but this is felt not to be a significant finding due to the size of the defect as well as normal wal l motion at stress and rest. All other raza perfuse normally. Myocardial Wall Motion: Normal at stress and rest. Myocardial Thickening: Normal at stress and rest. Coronary Artery Calcifications: Faint calcifications are visualized in the proximal portion of the le ft circumflex artery and the proximal portion of the right coronary artery. Lungs: No lung nodules or enlarged nodes. There is a substernal thyroid goiter. Additional Findings: There is a substernal thyroid goiter. In addition, on the stress and rest gated acquired planar images that are used for the reconstruction, subtle but definite focal activity is no ty in the left arm posteriorly near the axilla. Review of the CT angiogram of the chest from shows that this portion of the arm is outside of the field of interest. The activity appears to be more posterior to the location of the axillary vein. This myocardial imaging agent does accumulate in various tumors. Readin. Normal left ventricular chamber size. Transient ischemic dilatation ratio is normal at 0.81. 2. Normal stress and rest LVEF values of 69% and 70%, respectively. This patient may have sinus kaleigh ycardia. 3. Normal stress and rest myocardial perfusion, wall motion, and thickening. Coronary artery calcifi cations are noted in the proximal portions of the left circumflex artery and the right coronary arter y. 4. There is accumulation of isotope in the posterior aspect of the left upper arm. We shall try to l ocalize this area of abnormal activity with the gamma probe before the activity disappears. 5. Substernal thyroid goiter.
[2018-11-26] MEDS: Warfarin 5 MG TAB PO SCH (20:02)
[2018-11-26] MEDS: Insulin Glargine SoloStar Inj 100 UNIT/ML INSULN.PEN SUBCUT SCH (20:02)
[2018-11-26] MEDS: Simvastatin Tab 20 MG TAB PO SCH (20:02)
[2018-11-27 04:51] LABS: BASOPHILS # (AUTO) 0.01 10*3/UL; BASOPHILS % (AUTO) 0.2 % (0-1); EOSINOPHILS # (AUTO) 0.29 10*3/UL; EOSINOPHILS % (AUTO) 5.7 % (0-8); Hematocrit [HCT] 38.3 % (37.0-47.0); Hemoglobin [HGB] 12.8 g/dL (12.0-16.0); LYMPHOCYTES # (AUTO) 1.37 10*3/uL; MEAN CORPUSCULAR HEMOGLOBIN 29.2 PG (27-31); MEAN CORPUSCULAR HGB CONC 33.4 g/dL (33-37); MEAN CORPUSCULAR VOLUME 87.4 FL (81-99); MEAN PLATELET VOLUME 9.7 FL (7.4-12.2); MONOCYTES # (AUTO) 0.22 10*3/UL (0.3-0.8); MONOCYTES % (AUTO) 4.3 % (5-15); NEUTROPHILS # (AUTO) 3.16 10*3/UL; NEUTROPHILS % (AUTO) 62.5 % (50-80); RED BLOOD COUNT 4.38 10^6/uL (4.20-5.40)
[2018-11-27 04:56] LABS: PLATELET MORPHOLOGY COMMENT NORMAL MORPHOLOGY (NORM); RBC MORPHOLOGY COMMENT NORMAL MORPHOLOGY (NORM); WBC MORPHOLOGY COMMENT NORMAL MORPHOLOGY (NORM)
[2018-11-27 05:09] LABS: BLOOD UREA NITROGEN 19 mg/dL (7-22); BUN/CREATININE RATIO 21.11 (6-20); SERUM ALBUMIN 2.7 g/dL (3.5-4.8)
[2018-11-27] MEDS: Insulin Lispro Flexpen 300 UNIT/3 ML INSULN.PEN SUBCUT SCH ×2 (07:09→11:38)
--- NOTE | 2018-11-27 09:00 | DI ---
CT ABDOMEN SCAN WITH IV CONTRAST, 11/27/2018 7:00 AM : Clinical History: Abdominal pain. Belching. Previous Exam: None at this facility. IV Contrast: 75 mL of Isovue 300. Oral Contrast: No oral contrast ordered. Rectal Contrast: No rectal contrast ordered. Lungs: No infiltrate or effusion. Liver: Normal. Gallbladder: Status post cholecystectomy. Common bile duct measures 8 mm. Adrenal Glands: Normal. Spleen: Mild splenomegaly. Pancreas: Normal. Kidneys: Normal size, shape, position and contour. No hydronephrosis or hydroureter. No renal or uret eral calculi. Masses: None. Lymph Nodes: Normal. Ascites: No ascites. Free Air: None. Spine: Normal lower thoracic and lumbar spine. READING: Mild splenomegaly. CT PELVIS SCAN WITH IV CONTRAST, 11/27/2018 7:00 AM: Clinical History: See above. Previous Exam: None at this facility. Contrast: Same bolus used for CT scans of the abdomen. Masses: No masses or enhancing lesions. Ascites: None. Free Air: None. Lymph Nodes: There are enlarged lymph nodes bilaterally low in the pelvis in the largest is on the le ft side measuring 10 x 20 x 35 mm. No inguinal adenopathy is present. Appendix: Not identified. No cecal or right lower quadrant inflammatory mass. Small Bowel: Normal small bowel, terminal ileum, and ileocecal valve. Colon: Normal. Bladder: Normal. Uterus: Atrophic but normal. Ovaries: Neither ovary is visualized. Hernias: Small to moderate umbilical hernia that contains only mesenteric fat. Bony Pelvis: Normal sacrum, pelvic bones, and hips. READIN. There are bilaterally enlarged lymph nodes low in the pelvis it either side of the bladder and th e largest measures approximately 10 x 20 x 35 mm. No inguinal adenopathy is present. 2. Small to moderate size umbilical hernia containing only mesenteric fat.
[2018-11-27] MEDS: NITROGLYCERIN SR 2.5 MG CAPSULE PO SCH (09:25)
[2018-11-27] MEDS: LISINOPRIL 20 MG TABLET PO SCH (09:25)
[2018-11-27] MEDS: BuPROPion SR Tab 150 MG TAB PO SCH (09:25)
[2018-11-27] MEDS: PANTOPRAZOLE IV 40 MG VIAL IVP SCH (09:25)
[2018-11-27] MEDS: ENOXAPARIN SODIUM 40 MG/0.4 ML SYRINGE SUBCUT SCH (09:25)
[2018-11-27] MEDS: ASCORBIC ACID Chewable 500 MG TABLET PO SCH (09:25)
[2018-11-27] MEDS ORDERED: PANTOPRAZOLE 40 MG TABLET PO SCH (09:45)
[2018-11-27 11:08] VITALS: BP 142/70; RESP 19; TEMP 97.1; O2SAT 98
--- NOTE | 2018-11-27 14:15 | DCSUMMARY ---
Hospitalization Summary Admit Date: 11/24/2018 Discharge Date: 11/27/18 Primary Diagnosis:: chest pain, I think secondary to GERD Hospital Course: This very pleasant 73-year-old female that presented with chest pain, that was atypical, and associated with belching as well. She ruled out for myocardial infarction, stress test was ordered and she had essentially a negative stress test although there was a finding of possible reversible defect in the lateral base wall of the heart. The patient had normal wall motion however on the study. Interestingly, there were some radio uptake abnormalities that may have been associated with the patient's gown, it is not clear, but on examination, I do not appreciate any left arm masses or lesions that would suggest melanoma. It is a normal examination. We placed the patient on a proton pump inhibitor. The belching did minimize to some degree, but over the last 24 hours really has not changed much. It has improved from admission. She does have a prior history of an H. pylori infection as well as chronic gastritis, so I think keeping the patient on Protonix may be the best thing to do. If she still having symptoms in the next 2 weeks, I suggest that she visit with her surgeon to discuss further about whether a repeat EGD would need to be done. I did do a CAT scan. It showed some nonspecific lymph node inflammation in the pelvis and mild splenomegaly, but no source for the belching symptoms. Patient's diabetes is poorly controlled with a hemoglobin A1c at just over 8. I recommended consideration for insulin therapy but the patient is reluctant to do that until she speaks with her primary physician which I think is reasonable. We spoke about getting off Coumadin as it is clear that the patient's INR is erratic and difficult to control. She is too high to low frequently. We discussed novel oral anticoagulants therapy, including potential benefits, risks being essentially same as Coumadin although reversibility issues certainly exist. We did turner comparisons. For one month of Eliquis or Xarelto, the patient would be looking at a co-pay of about $8.50. She wants to discuss this with her family physician as well. Given the potential finding of bilateral, base wall reversible ischemia, I've arranged cardiology appointment later this month. Today, no chest pain, shortness breath, nausea or vomiting, and the patient would like to go home. Belching persist but it is improved from admission. Assessment and Plan: 1. As per discharge assessments noted 2. Disposition: 3. Condition on discharge, stable and improved. 4. Diet: regular diet 5. Activities: resume normal activities 6. Follow-Up: 1. Dr. Munoz 12/08/2018 2. [facility] in the [facility], 12/11/2018 7. Medications at the Time of Discharge: Home Medications Medication Instructions Recorded Confirmed Type Ascorbic Acid [Vitamin C] 1 tab PO QD #30 tab 10/07/16 11/24/18 Rx atenolol 25 mg tablet 25 mg PO BEDTIME #30 tab 05/24/18 11/24/18 Rx simvastatin 20 mg tablet 20 mg PO DAILY #30 tab 05/24/18 11/24/18 Rx warfarin 5 mg tablet 20 mg PO DAILY #120 tab 05/24/18 11/24/18 Rx bupropion HCl SR 150 mg tablet,12 150 mg PO BID #60 tab 08/23/18 11/24/18 Rx hr sustained-release furosemide 20 mg tablet 20 mg PO Q OTHER DAY #30 tab 08/23/18 11/24/18 Rx lisinopril 40 mg tablet 40 mg PO QDAY #30 tab 08/23/18 11/24/18 Rx metformin 500 mg tablet 1,000 mg PO BID #360 tab 08/23/18 11/24/18 Rx Nitroglycerin ER [Nitro-Bid ER] 2.5 mg PO BID #60 cap 11/27/18 Rx Pantoprazole Sodium [Protonix] 40 mg PO DAILY #30 tab 11/27/18 Rx 8. This is an observation discharge. Exam - Vitals Vital Signs: Vital Signs Temperature 97.1 F Temperature Source Temporal Artery Scan Pulse Rate [Pulse Oximeter] 53 Pulse Rate 53 Respiratory Rate 19 Blood Pressure [Right Arm] 156/69 Blood Pressure [Left Arm] 142/70 Pulse Ox 98 Oxygen Delivery Method Room Air Height 5 ft 2 in Weight 218 lb - General General Appearance: No Acute Distress, Cooperative - Eye Eye Exam: POSITIVE: No Scleral Icterus - ENT ENT Exam: POSITIVE: Mucous Membranes Moist - Neck Neck Exam: JVP is not Raised - Respiratory Respiratory Exam: POSITIVE: Clear to Auscultation - Bilaterally, Breathing Non Labored - Cardiovascular Cardiovascular Exam: POSITIVE: RRR, No Murmur, No Clicks, No Gallops, No Rubs, No JVD - GI/Abdominal GI/Abdominal Exam: POSITIVE: Normal Bowel Sounds, Non Tender, Non Distended, Soft - Extremities Extremities Exam: POSITIVE: No Clubbing Present, No Edema Present, No Cyanosis Present - Neurological Neurological Exam: POSITIVE: Alert, Oriented x 3, No Facial Droop, Speech Intact / Clear, Moves All Extremities Equally Data Peritnent Studies: 11/24/18 11/24/18 11/24/18 13:20 13:20 13:20 WBC Hgb Hct Plt Count PT INR Sodium Potassium Chloride Carbon Dioxide Anion Gap BUN Creatinine BUN/Creatinine Ratio Glucose Mean Blood Glucose Hemoglobin A1c Calculated Osmolality Calcium 10.6 Magnesium 1.9 Total Bilirubin 0.9 AST 19 ALT Alkaline Phosphatase 101 Troponin I < 0.012 C-Reactive Protein 0.8 Total Protein 7.9 Albumin 4.4 Globulin 3.5 Triglycerides Cholesterol LDL Cholesterol, Calc VLDL Cholesterol HDL Cholesterol Cholesterol/HDL Ratio Amylase Lipase TSH Free T4 11/24/18 11/24/18 11/25/18 13:20 18:45 00:00 WBC Hgb Hct Plt Count PT INR Sodium Potassium Chloride Carbon Dioxide Anion Gap BUN Creatinine BUN/Creatinine Ratio Glucose Mean Blood Glucose Hemoglobin A1c Calculated Osmolality Calcium Magnesium Total Bilirubin AST ALT Alkaline Phosphatase Troponin I < 0.012 < 0.012 C-Reactive Protein Total Protein Albumin Globulin Triglycerides Cholesterol LDL Cholesterol, Calc VLDL Cholesterol HDL Cholesterol Cholesterol/HDL Ratio Amylase 72 Lipase 47 TSH Free T4 11/25/18 11/25/18 11/25/18 04:51 04:51 04:51 WBC Hgb Hct Plt Count PT INR Sodium Potassium Chloride Carbon Dioxide Anion Gap BUN Creatinine BUN/Creatinine Ratio Glucose Mean Blood Glucose 185.062 Hemoglobin A1c 8.14 H Calculated Osmolality Calcium Magnesium Total Bilirubin AST ALT Alkaline Phosphatase Troponin I C-Reactive Protein Total Protein Albumin Globulin Triglycerides 90 Cholesterol 113 L LDL Cholesterol, Calc 63.000 VLDL Cholesterol 18 HDL Cholesterol 32 L Cholesterol/HDL Ratio 3.53 Amylase Lipase TSH 0.356 Free T4 1.34 11/27/18 11/27/18 11/27/18 04:28 04:28 04:28 WBC 5.06 Hgb 12.8 Hct 38.3 Plt Count 210 PT 22.7 H INR 2.37 Sodium 139 Potassium 4.1 Chloride 111 Carbon Dioxide 23 Anion Gap 5 BUN 19 Creatinine 0.9 BUN/Creatinine Ratio 21.11 H Glucose 96 Mean Blood Glucose Hemoglobin A1c Calculated Osmolality 289.0 Calcium 9.3 Magnesium Total Bilirubin 0.2 L D AST 16 ALT 11 D Alkaline Phosphatase 50 Troponin I C-Reactive Protein Total Protein Albumin Globulin Triglycerides Cholesterol LDL Cholesterol, Calc VLDL Cholesterol HDL Cholesterol Cholesterol/HDL Ratio Amylase Lipase TSH Free T4 Procedures: [address] [facility] [facility] [place] [address] PH: DD: [phone] FAX: [phone] ~DIAGNOSTIC IMAGING REPORT~ Patient: Rasheeda Maurer : 1945 Sex: F Age: 73 Exam Name: CT Abdomen/Pelvis W Contrast Exam Date: 11/27/18 Report # : [id number] CPT Code: 55697 EMR/MR #: [id number] Ordering: ANTON BLAIR Admiting: ANTON BLAIR DO Primary: Trevor Frankel MD Attending: ANTON BLAIR DO Signed CT ABDOMEN SCAN WITH IV CONTRAST, 11/27/2018 7:00 AM : Clinical History: Abdominal pain. Belching. Previous Exam: None at this facility. IV Contrast: 75 mL of Isovue 300. Oral Contrast: No oral contrast ordered. Rectal Contrast: No rectal contrast ordered. Lungs: No infiltrate or effusion. Liver: Normal. Gallbladder: Status post cholecystectomy. Common bile duct measures 8 mm. Adrenal Glands: Normal. Spleen: Mild splenomegaly. Pancreas: Normal. Kidneys: Normal size, shape, position and contour. No hydronephrosis or hydroureter. No renal or ureteral calculi. Masses: None. Lymph Nodes: Normal. Ascites: No ascites. Free Air: None. Spine: Normal lower thoracic and lumbar spine. READING: Mild splenomegaly. CT PELVIS SCAN WITH IV CONTRAST, 11/27/2018 7:00 AM: Clinical History: See above. Previous Exam: None at this facility. Contrast: Same bolus used for CT scans of the abdomen. Masses: No masses or enhancing lesions. Ascites: None. Free Air: None. Lymph Nodes: There are enlarged lymph nodes bilaterally low in the pelvis in the largest is on the left side measuring 10 x 20 x 35 mm. No inguinal adenopathy is present. Appendix: Not identified. No cecal or right lower quadrant inflammatory mass. Small Bowel: Normal small bowel, terminal ileum, and ileocecal valve. Colon: Normal. Bladder: Normal. Uterus: Atrophic but normal. Ovaries: Neither ovary is visualized. Hernias: Small to moderate umbilical hernia that contains only mesenteric fat. Bony Pelvis: Normal sacrum, pelvic bones, and hips. READIN. There are bilaterally enlarged lymph nodes low in the pelvis it either side of the bladder and the largest measures approximately 10 x 20 x 35 mm. No inguinal adenopathy is present. 2. Small to moderate size umbilical hernia containing only mesenteric fat. Dictated By: 11/27/18 0840 DOMENICO PERRY MD. Signed By: 11/27/18 0900 DOMENICO PERRY MD. [address] [place] [address] PH: DD: [phone] FAX: [phone] ~DIAGNOSTIC IMAGING REPORT~ Patient: Rasheeda Maurer : 1945 Sex: F Age: 73 Exam Name: [place] Myocardial Multi-Spect Exam Date: 11/25/18 Report # : [id number] CPT Code: 61006 EMR/MR #: [id number] Ordering: ANTON BLAIR Admiting: ANTON BLAIR DO Primary: Trevor Frankel MD Attending: ANTON BLAIR DO Signed 2 DAY LEXISCAN STRESS & REST MYOCARDIAL PERFUSION SCANS, 11/25/2018-11/26/2018: Clinical History: Chest pain. Previous Exam: None at this facility. Monitoring Physician: Dr. Anton Blair. Dose: Stress dose: 37 mCi on 11/25/2018. Rest dose: 37 mCi on 11/24/2016. Quantitative Analysis: Revision3 program without and with low dose limited CT chest scan attenuation correction. Exam Quality: Excellent. Rejected Beats: Stress = 0%; Rest = 0%. HR: Stress = 56-61 b/m; Rest = 61-64 b/m. Left Ventricular Chamber Sizes: Normal at stress and rest. Transient Ischemic Dilatation Ratio: 0.81. Normal Manjit TID <= 1.22; normal Lexiscan TID <= 1.33. LVEF: Stress: 69%. Rest: 70%. Myocardial Perfusion: The non-attenuated corrected scans are completely normal at stress and rest. The attenuated corrected scans show a subtle lateral basal defect at stress that does improve with rest but this is felt not to be a significant finding due to the size of the defect as well as normal wall motion at stress and rest. All other raza perfuse normally. Myocardial Wall Motion: Normal at stress and rest. Myocardial Thickening: Normal at stress and rest. Coronary Artery Calcifications: Faint calcifications are visualized in the proximal portion of the left circumflex artery and the proximal portion of the right coronary artery. Lungs: No lung nodules or enlarged nodes. There is a substernal thyroid goiter. Additional Findings: There is a substernal thyroid goiter. In addition, on the stress and rest gated acquired planar images that are used for the reconstruction, subtle but definite focal activity is noted in the left arm posteriorly near the axilla. Review of the CT angiogram of the chest from 11/24/2018 shows that this portion of the arm is outside of the field of interest. The activity appears to be more posterior to the location of the axillary vein. This myocardial imaging agent does accumulate in various tumors. Readin. Normal left ventricular chamber size. Transient ischemic dilatation ratio is normal at 0.81. 2. Normal stress and rest LVEF values of 69% and 70%, respectively. This patient may have sinus bradycardia. 3. Normal stress and rest myocardial perfusion, wall motion, and thickening. Coronary artery calcifications are noted in the proximal portions of the left circumflex artery and the right coronary artery. 4. There is accumulation of isotope in the posterior aspect of the left upper arm. We shall try to localize this area of abnormal activity with the gamma probe before the activity disappears. 5. Substernal thyroid goiter. Dictated By: 11/26/18 1425 DOMENICO PERRY MD. Signed By: 11/26/18 1458 DOMENICO PERRY MD. ~~REPORT ADDENDUM 11/26/18~~ ADDENDUM, 11/26/2018 6:16 PM : The patient was brought back for additional SPECT imaging of the upper arms to clarify the source of the activity on the posterior aspect of the left upper arm on both exams days. On these delayed images, there is no abnormal activity in the left arm. The patient's gown was changed prior to this delayed imaging. Supplemental Reading: No focus of activity is seen in the left upper arm on the delayed images. Addendum Dictated By: DOMENICO PERRY Addendum Signed By: DOMENICO PERRY [address] [facility] [place] [address] PH: DD: [phone] FAX: [phone] ~DIAGNOSTIC IMAGING REPORT~ Patient: Rasheeda Maurer : 1945 Sex: F Age: 73 Exam Name: CT CTA Chest Non-Coronary [facility] Exam Date: 11/24/18 Report # : [id number] CPT Code: 39991 EMR/MR #: [id number] Ordering: AGUSTIN GERMAIN Admiting: ANTON BLAIR DO Primary: Trevor Frankel MD Attending: ANTON BLAIR DO Signed CT ANGIOGRAM OF THE CHEST, 11/24/2018 2:26 PM : Clinical History: Chest pressure. Elevated D-dimer test. Previous Exam: None at this facility. Technique: Scans from base of neck to lung bases with IV contrast. Bolus tracking protocol was used for timing the injection. Non-MIPS and MIPS sagittal/coronal images generated. IV Contrast: 65 mL of Isovue 300. Base of Neck: Normal. Nodes: Normal axillary, supraclavicular, mediastinal, and hilar lymph nodes. Heart: Normal. No coronary artery calcifications. Aorta: Normal thoracic aorta. No aneurysm or dissection. Pulmonary Arteries: Because of apparent tachycardia, opacification of the pulmonary arteries is suboptimal. No clots are visualized to at least the third and larger fourth order branches. Subtle clots could be missed. There is pulmonary arterial hypertension in the main pulmonary artery is markedly dilated raising the possibility of pulmonic stenosis. Lungs: No infiltrates. No evidence of chronic lung disease. Effusion(s): None. Nodules: None. Bony Structures: Normal visualized portions of ribs, sternum, scapulae, clavicles, and shoulders. Normal visualized portions of thoracic spine. Limited Upper Abdomen: Both adrenal glands are normal. There is moderate splenomegaly. The liver is of low density consistent with diffuse fatty infiltration, mild. Limited views of the pancreas are normal. READIN. Technically limited study because of decreased opacification of the pulmonary arteries. No clots are visualized to the third or the larger fourth order branches. There is pulmonary arterial hypertension without underlying chronic lung disease raising the possibility of other causes of chronic hypoxia. The main pulmonary artery shows poststenotic dilatation suggesting there may be pulmonic stenosis. 2. Suspected fatty infiltration of the liver. Moderate splenomegaly. Dictated By: 11/24/18 1551 DOMENICO PERRY MD. Signed By: 11/24/18 1600 DOMENICO PERRY MD. ~~REPORT ADDENDUM 11/24/18~~ ADDENDUM, 11/24/2018 4:01 PM : There is thyromegaly in the thyroid descends below the sternal notch. Additionally, the density is much lower than expected suggesting this patient is hypothyroid. The findings would be consistent with a goiter with substernal extension. Addendum Dictated By: DOMENICO PERRY Addendum Signed By: DOMENICO PERRY Patient Problems - Patient Problem List (1) GERD (gastroesophageal reflux disease) Current Visit: Yes Status: Acute Code(s): K21.9 - Gastro-esophageal reflux disease without esophagitis Qualifiers: Esophagitis presence: esophagitis presence not specified Qualified Code(s): K21.9 - Gastro-esophageal reflux disease without esophagitis Category: Medical (2) Chest pain Current Visit: Yes Status: Acute Code(s): R07.9 - Chest pain, unspecified Category: Medical (3) Diabetes mellitus with hyperglycemia Current Visit: Yes Status: Chronic Comment: Continue same meds. Code(s): E11.65 - Type 2 diabetes mellitus with hyperglycemia Qualifiers: Diabetes mellitus type: type 2 Diabetes mellitus vermin exterminator insulin use: without vermin exterminator use Qualified Code(s): E11.65 - Type 2 diabetes mellitus with hyperglycemia Category: Medical (4) Subtherapeutic international normalized ratio (INR) Current Visit: Yes Status: Acute Code(s): R79.1 - Abnormal coagulation profile Category: Medical (5) Stasis ulcer of left lower extremity Current Visit: No Status: Acute Onset Date: 12/16/14 Code(s): I83.029 - Varicose veins of left lower extremity with ulcer of unspecified site Category: Medical (6) Hypertension Current Visit: Yes Status: Acute Onset Date: 12/16/14 Code(s): I10 - Essential (primary) hypertension Qualifiers: Hypertension type: essential hypertension Qualified Code(s): I10 - Essential (primary) hypertension Category: Medical (7) Hypercholesterolemia Current Visit: Yes Status: Chronic Onset Date: 10/31/15 Code(s): E78.00 - Pure hypercholesterolemia, unspecified Category: Medical
== END 2018-11-27 14:23 | disposition home or self-care (01) ==
LOC: MED/SURG 13:27 → ER 13:27 → MED/SURG 16:15
PROVIDERS: ADMIT Family Medicine; ATTEND Family Medicine